=== PATIENT | female | born 1950 | race Caucasian/White ===

== ENCOUNTER 2016-08-28 14:57 | Inpatient (IN) | payer MEDICARE, OTHER ==
[~2016-08-28] VITALS: Ht 162.6 cm; Wt 58.3 kg
--- NOTE | 2016-08-28 15:00 | NUR ---
RECEIVED PATIENT FROM THE ED ACCOMPANIED BY ED HOSPITAL STAFF AND SPOUSE. ORIENTED TO SELF AND HOSPITAL . INTERMITTENT EPISODES OF TEARFULNESS. REPORTS OF CONFUSION WITH HALLUCINATIONS AND PARANOIA INCREASING OVER THE LAST 6 MONTHS. ADMITTED TO ROOM 1124 WITH ALTERED MENTAL STATUS. COOPERATIVE WITH ADMISSION PROCESS. SPOUSE AND PATIENT RELATED CODE STATUS IS FULL CODE.
[2016-08-28] MEDS ORDERED: VICKS VAPORUB O50 GM NASAL (17:37)
[2016-08-28] MEDS ORDERED: ZOLOFT100 MG PO (17:38)
[2016-08-28] MEDS ORDERED: GABAPENTIN100 MG PO ×2 (17:39→17:47)
[2016-08-28] MEDS ORDERED: PLAVIX75 MG PO (17:40)
[2016-08-28] MEDS ORDERED: LASIX40 MG PO ×2 (17:41→17:42)
[2016-08-28] MEDS ORDERED: PROTONIX40 MG PO (17:41)
[2016-08-28] MEDS ORDERED: MOBIC7.5 MG PO (17:43)
[2016-08-28] MEDS ORDERED: ATIVAN0.5 MG PO (17:44)
[2016-08-28] MEDS ORDERED: HYDROCODON-ACE1 EAC7 PO ×2 (17:46→17:52)
[2016-08-28] MEDS ORDERED: PRINIVIL10 MG PO (17:48)
[2016-08-28] MEDS ORDERED: BENADRYL25 MG PO (17:50)
[2016-08-28] MEDS ORDERED: ATIVAN1 MG PO (17:51)
[2016-08-28] MEDS ORDERED: TYLENOL PM1 TAB PO (17:53)
[2016-08-28] MEDS ORDERED: ZETIA10 MG PO (17:54)
[2016-08-28] MEDS ORDERED: LIPITOR20 MG PO (17:55)
[2016-08-28 20:59] VITALS: BP 103/58
[2016-08-28 22:03] VITALS: BP 103/58
--- NOTE | 2016-08-29 02:35 | NUR ---
PATIENT WAS IN ROOM, SITTING ON BED, ALERT AND ORIENTED TO PERSON, PLACE, TIME AND SITUATION. WHEN ASKED ABOUT HALLUCINATIONS, SHE SAID SOMETIMES SHE BELIEVES SOMEONE IS FOLLOWING HER. PATIENT ADMITS TO DEPRESSION AND FEELINGS OF HOPELESSNESS. HOWEVER, PATIENT IS VERY MOTIVATED TO TREATMENT AND WANTS TO GET BETTER. PATIENT SAYS SHE HAS BEEN DEPRESSED SINCE LOSING CUSTODY OF HER GRANDDAUGHTER. SHE IS CALM, PLEASANT AND COOPERATIVE.
[2016-08-29 06:57] LABS: CHOL - HDL RATIO 3.2 ratio (2.3-4.1); LDL-HDL RATIO 1.7 ratio (1.5-3.5)
[2016-08-29 07:03] LABS: HEMOGLOBIN A1C 5.5 % (4.8-6.0)
[2016-08-29 07:53] VITALS: BP 110/55
[2016-08-29 10:59] VITALS: Ht 162.6 cm; Wt 58.3 kg
--- NOTE | 2016-08-29 11:20 | NUR ---
B) PATIENT IS AWAKE AND ALERT, SHE DOES HAVE SOME CONFUSION, SHE HAS NOT DISPLAYED ANY PARANOIA. SHE DOES HAVE A SAD AFFECT UNTIL STAFF OR PEERS TALK TO HER, SHE IS USING A WALKER JUST TO HELP STEADY HER. I) PROVIDE PRESCRIBED MEDS. R) PATIENT IS COMPLIANT WITH MEDS AND UNT MILIEU. P) CONTINUE PLAN OF CARE.
[2016-08-29 19:30] VITALS: BP 110/83
--- NOTE | 2016-08-29 20:45 | NUR ---
B) RECEIVED IN DAYROOM SITTING IN CHAIR WATCHING TV VERY INTENSELY. NO SIGNS OF HALLUCINATIONS NOTED. CALM AND COOPERATIVE WITH CARE AND ASSESSMENT. I) ADMINISTER PRESCRIBED MEDICATIONS, REORIENT TO REALITY VS NON-REALITY. VSS. R) MEDICATION COMPLIANT. AMBULATES INDEPENDENTLY. P) CONTINUE CURRENT PLAN OF CARE AND MONITOR FOR SAFETY AND CHANGES.
[2016-08-30 09:32] VITALS: BP 114/53
--- NOTE | 2016-08-30 12:50 | NUR ---
B) PATIENT HAS BEEN TEARFUL TODAY, SHE SAYS "I CAN BE SAD THEN WATCH THESE MOVIES THEN GET HAPPY. PATIENT IS AWAKE AND ALERT AND ORIENTED X3. I) PROVIDE PRESCRIBED MEDS. R) PATIENT IS COMPLIANT WITH MEDS AND UNIT MILIEU. P) CONTINUE PLAN OF CARE.
[2016-08-30 19:30] VITALS: BP 122/66
--- NOTE | 2016-08-31 06:07 | NUR ---
RECEIVED IN DAYROOM SITTING IN RECLINER WATCHING TV WITH PEERS. CALM AND COOPERATIVE WITH CARE AND ASSESSMENT. AMBULATORY INDEPENDENTLY. TEARFUL AT TIMES. REDIRECT NEEDED. COMPLIANT WITH MEDICATIONS. CONTINUE WITH PLAN OF CARE AND MONITOR FOR SAFETY.
[2016-08-31 07:00] VITALS: BP 121/64
--- NOTE | 2016-08-31 15:02 | NUR ---
SITTING IN CHAIR IN DAYROOM, LABILE EMOTIONS, CRYING FREQUENTLY. EASILY BECOMES ANXIOUS WITH PEER DISRUPTIONS AND STARTS CRYING. PATIENT ORIENTED TO SELF, PLACE, TIME AND SITUATION. HAS FEELINGS OF HOPELESSNESS BUT WANTS TO GET BETTER. PATIENT WAS ENCOURAGED TO TALK TO NURSE. CONTINUE TO MONITOR, CONTINUE PLAN OF CARE.
[2016-08-31] MEDS ORDERED: PROTONIX40 MG PO (16:20)
[2016-08-31 19:30] VITALS: BP 115/89
--- NOTE | 2016-09-01 03:36 | NUR ---
B) Recieved sitting in the day room watching TV, calm and cooperative with assessment and care, sad and tearful at times, no hallucinations noted this shift, I) Administered perscribed medications, monitored for safety, R) Medication compliant, cooperative with staff, P) Continue plan of care.
--- NOTE | 2016-09-01 14:09 | PSY ---
PATIENT NAME:YOVANY PRESTON MEDICAL RECORD: [id number] : 48 LOCATION:[id number] ADMISSION DATE: 08/28/16 ACCOUNT: [id number] PSYCHIATRIC EVALUATION DATE OF EVALUATION: 08/29/16 Psychiatric Evaluation IDENTIFYING DATA: The patient is 66 years old and she is admitted to the hospital on a voluntary basis. CHIEF COMPLAINT: Depression. HISTORY OF PRESENT ILLNESS: The patient is admitted to the hospital from the Emergency Room. She presented there reporting depressive symptoms and feeling overwhelmed. Her indicated that she had been having active hallucinations and was feeling paranoid. The patient admits to this, but then tries to explain it away or dismiss it. Most of this relates to the fact that she had a granddaughter whose mother went to custodial. When the mother went to custodial, the child was 1 years old and came to live with her. At the age of 8, 7 years later, the child's mother gets out of custodial and the child goes to live with the mother. Yovany is very upset about this, feels like she has lost a child and apparently the granddaughter is also very upset and feels like she has lost a person, who for all practical purposes served as her mother. To compound the situation, Yovany has only had 1 biological child. She adopted others. The biological child she ____ in infancy. To make matters even more unpleasant, she adopted a child from [place] and that child in infancy. Yovany is endorsing numerous neurovegetative depressive symptoms. She says she does not want to kill herself, but she is having the psychotic symptoms. She denies substance abuse. PAST MEDICAL HISTORY: Significant for hypertension, hyperlipidemia, gastroesophageal reflux disease, diverticulitis and history of cervical cancer. She also has a history of Crohn disease and fibromyalgia and chronic lower back pain. PAST PSYCHIATRIC HISTORY: Significant for outpatient treatment for depression and anxiety, but this is her first hospitalization and apparently, the first time she has lost touch with reality. FAMILY HISTORY: Significant for anxiety and depression. ALLERGIES: CEPHALOSPORINS AND PENICILLIN. CURRENT MEDICATIONS: Include Zoloft, Neurontin, Plavix, Protonix, Lasix, Mobic, Ativan, hydrocodone, Neurontin, ____, Ativan, acetaminophen, and Lipitor. SOCIAL HISTORY: The patient is to her second . She has been to this man for 28 years. They have 4 children, all of whom are adopted. She has a number of grandchildren. It was the incident with an adopted daughter going to custodial and the granddaughter that she raised for ____ years that led to all of this conflict and depression. MENTAL STATUS EXAMINATION: The patient is awake, alert and oriented to person, place, somewhat to time and somewhat to situation. Her mood is depressed. Her affect is constricted. Thought processes are circumstantial. Memory, concentration and abstraction abilities are at least mildly impaired. She denies that she would seek to harm herself or others as well as overt psychotic symptoms. ASSETS: Supportive family members. LIABILITIES: Limited insight. DIAGNOSTIC IMPRESSION: AXIS I: Major depression, severe with psychotic features. AXIS II: None. AXIS III: Hypertension, hyperlipidemia, and chronic lower back pain. AXIS IV: Severe stressors. AXIS V: Global assessment of functioning is 35. PLAN: At this time, the patient is admitted to the hospital secondary to depressive symptoms with psychotic features. She will be comprehensively evaluated and treated with both mood stabilizing antidepressant and antipsychotic medications. Her long-term prognosis is guarded. TRANSINT:[id number] Voice Confirmation ID: [id number] DOCUMENT ID: [id number] RAOUL WILKS MD at 1409 CC: [id number] DICTATION DATE: 08/29/16 1349 POULTRY BUYER: 08/29/16 1504 ADM IN [facility] [address] [place] [address]
--- NOTE | 2016-09-01 14:42 | NUR ---
B.) Received this am, alert and oreinted times 4. Easily anxious but can not explain why. " I'm just anxious.". I.) Administer medications and monitor compliance. Encourage patient to express needs, provide one on one time to verbalize feelings and teach on coping skills. Monitor for any hallucination. R.) Compliant with medications. Emotionally labile, cries frequently, hopeless and becomes easily becomes anxious. States she does want to get better but just scared. No suicidal ideations. Talks with staff and expresses feelings, had one on one with skilled nursing case manager. Participated in group. No hallucinations noted or reported. P.) Continue plan of care.
[2016-09-01 19:30] VITALS: BP 90/45
--- NOTE | 2016-09-01 20:07 | NUR ---
RECEIVED IN DAYROOM. SITTING IN WHEELCHAIR WITH EYES OPEN. CALM AND COOPERATIVE WITH CARE AND ASSESSMENT. NO SIGNS OF HALLUCINATIONS. ENCOURAGE TO EXPRESS NEEDS. CONTINUES TO SIT QUIETLY IN CHAIR. CONTINUE PLAN OF CARE
--- NOTE | 2016-09-01 21:00 | NUR ---
PATIENT BECAME TEARFUL IN DAYROOM. WANTING TO CALL HER . TRANSFERED PATIENTS TO BEDROOM AREA. PATIENT CAME TO NURSES STATION AND STATED SHE WANTED TO TALK TO HER AND WAS TOLD THAT WE DO NOT ALLOW PATIENT TO MAKE CALLS AT THIS TIME OF NIGHT. PATIENT THEN STATED THAT SHE WANTED TO TALK TO THE DIRECTOR OF THE HOSPITAL. AGAIN WAS INSTRUCTED THAT WE DO NOT MAKE PHONE CALLS. PATEINT REFUSES TO DISCUSS WHAT ISSUES SHE IS HAVING WITH STAFF. VERY AGRUEMENTATIVE WITH STAFF.
--- NOTE | 2016-09-01 22:30 | NUR ---
NEW ORDER RECEIVED FOR ANXIETY. ATIVAN 0.5 MG PO OR IM EVRY 2 HRS NEEDED. HALDOL 2 MG PO OR IM EVERY 2 HRS NEEDED.
--- NOTE | 2016-09-01 23:10 | NUR ---
ATIVAN 0.5 MG PO AND HALDOL 2MG PO GIVEN FOR SEVERE ANXIETY. PATIENT SITTING AT BED SIDE AT THIS TIME IN CHAIR.
--- NOTE | 2016-09-02 00:06 | NUR ---
ASSISTED PATIENT FROM BEDSIDE CHAIR TO BED. BOX ALARM ON. NO SIGNS OF ANXIETY AT THIS TIME.
--- NOTE | 2016-09-02 12:00 | NUR ---
Nutrition Follow Up: Chart reviewed. Pt is eating 84% meal avg on a regular diet. Wt stable. +BM 08/29/16. Labs reviewed. Meds noted including Lasix. Pt with good po intake at this time. Rec continue current diet. RD will continue to monitor pt progress.
--- NOTE | 2016-09-02 14:16 | PN ---
PATIENT:YOVANY PRESTON MEDICAL RECORD: [id number] LOCATION:[facility] ADMISSION DATE: 08/28/16 PROGRESS NOTE DATE OF SERVICE: 09/01/2016 SUBJECTIVE: The patient's case was discussed with staff. She has no new complaint. OBJECTIVE: The patient has a depressed mood. She is very tearful. Again, she is talking about her granddaughter. She has clear evidence of cognitive impairment. For example, she cannot remember her wedding anniversary. She is going to be tested by Dr. Trudy Trujillo. I am not sure if the memory impairment is normal for someone so depressed or if there are 2 processes going on. I am going to increase the antidepressant dose. Her long-term prognosis is guarded. TRANSINT:[id number] Voice Confirmation ID: [id number] DOCUMENT ID: [id number] RAOUL WILKS MD at 1416 CC: [id number] DICTATION DATE: 09/01/16 1424 MAILROOM MANAGER: 09/01/16 2347 ADM IN [facility] [address] [place] [address]
--- NOTE | 2016-09-02 18:26 | NUR ---
PATIENT HAS BEEN LABILE IN EMOTIONS. SHE HAS BEEN CRYING AT VARIOUS TIMES. PATIENT SAID SHE WAS AFRAID SHE "WOULD BE HERE FOREVER". PATIENT WAS ENCOURAGED TO TALK WITH NURSE. CONTINUE TO MONITOR
--- NOTE | 2016-09-02 18:28 | NUR ---
PATIENT WAS IN DINING ROOM VISITING WITH FAMILY. SHE IS RELAXED, CALM AND COOPERATIVE. COMPLIANT WITH MEDICATIONS. CONTINUE TO MONITOR. CONTINUE PLAN OF CARE
--- NOTE | 2016-09-02 20:10 | NUR ---
RECEIVED IN DAYROOM. STTING IN CHAIR WATCHING TV. CALM AND COOPERATIVE WITH CARE AND ASSESSMENTS. NO SIGNS OF HALLUCINATIONS OR PARANOIA. ENCOURAGE TO EXPRESS NEEDS AND FEELINGS. CONTINUES TO SIT QUIETLY IN CHAIR. CONTINUE PLAN OF CARE
[2016-09-03 08:00] VITALS: BP 119/57
--- NOTE | 2016-09-03 12:00 | PN ---
PATIENT:YOVANY PRESTON MEDICAL RECORD: [id number] LOCATION:[facility] ADMISSION DATE: 08/28/16 PROGRESS NOTE DATE OF SERVICE: 09/02/2016 SUBJECTIVE: The patient's case was discussed with staff. She has no new complaint. OBJECTIVE: The patient is in good behavioral control. Her anxiety seems significantly better. She was tested by Dr. Trudy Trujillo and scored 25 out of 30 on the MOCA. The patient is not having any suicidal thoughts. ASSESSMENT: No change in diagnoses. PLAN: I anticipate the patient could be transitioned out of the hospital soon if this level of improvement is maintained. Her long-term prognosis is guarded. TRANSINT:[id number] Voice Confirmation ID: [id number] DOCUMENT ID: [id number] RAOUL WILKS MD at 1200 CC: [id number] DICTATION DATE: 09/02/16 1420 ORACLE ERP DEVELOPER: 09/02/16 9483 ADM IN [place] [id number] [place] [address]
[2016-09-03] MEDS ORDERED: KLONOPIN1 MG PO (12:06)
[2016-09-03] MEDS ORDERED: CYMBALTA20 MG PO (12:06)
[2016-09-03] MEDS ORDERED: ULTRAM50 MG PO (12:06)
[2016-09-03] MEDS ORDERED: PROTONIX40 MG PO (12:08)
[2016-09-03] MEDS ORDERED: CARAFATE1 G/10 ML PO (12:08)
--- NOTE | 2016-09-03 14:16 | NUR ---
Received this am alert and oriented times four, calm and cooperative with care. No hallucinations reported or noted. Socializing with staff and smiling, coping well by conversing with others, expressing her feeling and doing activities. Verbalized feeling hopeful and is smiling more. Compliant with medications. Safety maintained. Continue with plan of care and monitoring.
[2016-09-03 21:16] VITALS: BP 92/37
--- NOTE | 2016-09-04 00:59 | NUR ---
B) Recieved patient in the day room, alert and oriented X 4, calm and cooperative with assessment, helpful with other patients, I) Administered perscribed medications, monitored for safety, R) Medication compliant, ready to go home tomorrow, P) Continue plan of care.
--- NOTE | 2016-09-04 10:10 | NUR ---
B) PATIENT IS UP AND AWAKE SHE SAYS SHE DID NOT SLEEP WELL, SHE IS HAPPY TO BE GOING HOME. SHE IS QUIET, SHE PACKED HER BELONGINGS HERSELF. PATIENT HAS SOME DEPRESSION, BUT HER MOOD IS BETTER, SHE IS TAKING HER MEDS PRESCRIBED. PATIENT AMBULATES INDEPENDENTLY. I) PROVIDE PRESCRIBED MEDS, ENCOURAGE USE OF COPING SKILLS. R) PATIENT IS PLEASANT AND INTERACTS AND TRIES TO HELP STAFF WITH OTHER PATIENTS. P) CONTINUE D/C PLAN.
--- NOTE | 2016-09-04 11:19 | NUR ---
MEDS CALLED TO [facility]. ALL PAPER WORK FAXED TO DR. NICHOLS, PATIENT IS AWARE SHE NEEDS TO CALL HER DRHolleyS AND GET APPTS. PATIENT GIVEN APPT TIME FOR [facility] APPT. PATIENTS BELONGINGS ACCOUNTED FOR AND PACKED READY TO D/C WITH HER.
--- NOTE | 2016-09-04 11:30 | NUR ---
WHILE GETTING PATIENT READY TO D/C EXPLAINING D/C INFORMATION, SHE BECAME TEARFUL. ASKED HER WHAT SHE WAS TEARFUL ABOUT AND SHE SAID SHE NEEDED SOME UNDERGARMENTS. EXPLAINED TO HER THAT WE CAN GIVE HER SOME THAT IS NOT A PROBLEM, AND THAT SHE CAN START TALKING TO VERBALIZE HER FEELINGS INSTEAD OF CRYING. SHE SAID "OK" PATIENT AND SPOUSE D/C'D FROM THE UNIT NOW.
--- NOTE | 2016-09-04 15:04 | PN ---
PATIENT:YOVANY PRESTON MEDICAL RECORD: [id number] LOCATION:[facility] ADMISSION DATE: 08/28/16 PROGRESS NOTE DATE OF SERVICE: 09/03/2016 SUBJECTIVE: The patient's case was discussed with staff. She has no new complaint. OBJECTIVE: The patient's mood has improved. She denies that she would seek to harm herself or others. She is tolerating her medicines well. She is eating adequately and sleeping adequately. ASSESSMENT: No change in diagnoses. PLAN: I think the patient is just about ready for discharge. I had mentioned to her that perhaps we would discharge her tomorrow with this level of improvement was maintained and she requested that she be discharged today. I think that is a little premature, but not so much, so that I would not allow or discharge her against medical advice. I am going to go ahead and let her leave today. Her long-term prognosis is guarded. TRANSINT:[id number] Voice Confirmation ID: [id number] DOCUMENT ID: [id number] RAOUL WILKS MD at 1504 CC: [id number] DICTATION DATE: 09/03/16 1205 ENGINEERING SURVEYOR: 09/03/16 1348 DIS IN 09/04/16 [place] [address] [place] [address]
--- NOTE | 2016-09-06 14:54 | PN ---
PATIENT:YOVANY PRESTON MEDICAL RECORD: [id number] LOCATION:[facility] ADMISSION DATE: 08/28/16 PROGRESS NOTE DATE OF SERVICE: 09/04/2016 SUBJECTIVE: The patient's case was discussed with staff. She has no new complaint. OBJECTIVE: The patient is depressed, but not severely so. She certainly is not suicidal. She is looking forward to going home and is willing to go to the outpatient program at [facility]. ASSESSMENT: No change in diagnoses. PLAN: Current medicines have been reviewed and will be maintained. Long-term prognosis is guarded. TRANSINT:[id number] Voice Confirmation ID: [id number] DOCUMENT ID: [id number] RAOUL WILKS MD at 1454 CC: [id number] DICTATION DATE: 09/04/16 1515 ORGAN PIPE MAKER METAL: 09/04/162032 DIS IN 09/04/16 [facility] [address] [place] [address]
== END 2016-09-04 11:35 | disposition home or self-care (01) | DRG 885 ==
LOC: D.PSYCH 14:57
PROVIDERS: ADMIT Psychiatry & Neurology Psychiatry
DX: F32.3 Major depressive disorder, single episode, severe with psychotic features (principal); K50.90 Crohn's disease, unspecified, without complications; I10 Essential (primary) hypertension; E78.5 Hyperlipidemia, unspecified; G89.29 Other chronic pain; F41.9 Anxiety disorder, unspecified; K21.9 Gastro-esophageal reflux disease without esophagitis; K57.90 Diverticulosis of intestine, part unspecified, without perforation or abscess without bleeding; Z85.41 Personal history of malignant neoplasm of cervix uteri; M79.7 Fibromyalgia; Z72.0 Tobacco use

== ENCOUNTER 2016-10-22 22:43 | Inpatient (IN) | payer MEDICARE, OTHER ==
[~2016-10-22] VITALS: Ht 162.6 cm; Wt 68.8 kg
[~2016-10-22 22:43] MED LIST: ATIVAN0.5 MG PO; ATIVAN1 MG PO; BENADRYL25 MG PO; CARAFATE1 G/10 ML PO; CYMBALTA20 MG PO; GABAPENTIN100 MG PO; HYDROCODON-ACE1 EAC7 PO; KLONOPIN1 MG PO; LASIX40 MG PO; LIPITOR20 MG PO; MOBIC7.5 MG PO; PLAVIX75 MG PO; PRINIVIL10 MG PO; PROTONIX40 MG PO; TYLENOL PM1 TAB PO; ULTRAM50 MG PO; VICKS VAPORUB O50 GM NASAL; ZETIA10 MG PO; ZOLOFT100 MG PO
[2016-10-23] VITALS (60 sets, daily range): BP systolic 54–122; BP diastolic 36–93; Ht 162.6 cm; Wt 68.8 kg
[2016-10-23 00:56] LABS: HEMATOCRIT 42.2 % (36.0-48.0); HEMOGLOBIN 14.3 g/dL (12-16); MCHC 33.9 g/dL (31.0-37.0); MCV 91.5 fL (80.0-100.0); MEAN PLATELET VOLUME 10.1 fL (7.4-10.4); PLATELET COUNT 296 10x3/uL (130-400); RBC 4.61 10x6/uL (4.00-5.40); RDW 12.9 % (11.5-14.5); WBC 24.6 10x3/uL (4.8-10.8)
[2016-10-23 00:58] LABS: ALBUMIN 3.7 g/dL (3.4-5.0); BILIRUBIN - TOTAL 0.69 mg/dL (0.2-1.3); CALCIUM 9.1 mg/dL (8.5-10.1); CARBON DIOXIDE 16.8 mmol/L (21.0-32.0); CREATININE - SERUM 2.7 mg/dL (0.6-1.3); MAGNESIUM - SERUM 2.4 mg/dL (1.8-2.4); PROTEIN - SERUM 6.8 g/dL (6.4-8.2)
[2016-10-23 00:59] LABS: POTASSIUM - SERUM 4.8 mmol/L (3.5-5.1)
[2016-10-23 01:58] LABS: BASOPHILS 1 % (0-2); EOSINOPHILS 1 % (0-7); LYMPHOCYTES 5 % (15-50); MONOCYTES 1 % (2-11); NEUTROPHILS 81 % (40-80); PLATELET ESTIMATE NORMAL
[2016-10-23 02:39] LABS: APPEARANCE HAZY (CLEAR); BILIRUBIN NEGATIVE (NEGATIVE); COLOR YELLOW (YELLOW); GLUCOSE NEGATIVE (NEGATIVE); KETONE NEGATIVE (NEGATIVE); LEUKOCYTE ESTERASE NEGATIVE (NEGATIVE); NITRITE NEGATIVE (NEGATIVE); PH 5.5 (5.0-6.0); PROTEIN NEGATIVE (NEGATIVE); UROBILINOGEN NORMAL (NORMAL)
--- NOTE | 2016-10-23 03:05 | NUR ---
PT ARRIVED TO ICU. C/O ABD PAIN. BUTTOCKS REDDENED. RECTAL TUBE PLACED. BEAR HUGGER IN PLACE. TEMP ON ARRIVAL 96.2. RIGHT SUBCLAVIAN CVL; BLOODY DRAINAGE FROM SITE; PRESSURE BAG APPLIED. RIGHT AC PIV D/C'D DUE TO INFILTRATION.
[2016-10-23 03:58] LABS: BASOPHILS 0.1 % (0-2); EOSINOPHILS 0 % (0-7); HEMATOCRIT 39.7 % (36.0-48.0); HEMOGLOBIN 13.2 g/dL (12-16); IMMATURE GRANULOCYTES 0.4 % (0-5); LYMPHOCYTES 2.9 % (15-50); MCH 30.7 pg (26.0-34.0); MCHC 33.2 g/dL (31.0-37.0); MCV 92.3 fL (80.0-100.0); MEAN PLATELET VOLUME 9.9 fL (7.4-10.4); MONOCYTES 5.5 % (2-11); NEUTROPHILS 91.1 % (40-80); PLATELET COUNT 283 10x3/uL (130-400); RDW 12.6 % (11.5-14.5); WBC 30.5 10x3/uL (4.8-10.8)
[2016-10-23 11:30] LABS: APPEARANCE CLEAR (CLEAR); BACTERIA FEW /hpf (NONE SEEN); BILIRUBIN NEGATIVE (NEGATIVE); COLOR YELLOW (YELLOW); EPITHELIAL CELLS 0-5 /hpf (0-5); GLUCOSE NEGATIVE (NEGATIVE); KETONE NEGATIVE (NEGATIVE); LEUKOCYTE ESTERASE TRACE (NEGATIVE); MUCUS <1+ /lpf (NONE SEEN); NITRITE NEGATIVE (NEGATIVE); PROTEIN TRACE mg/dL (NEGATIVE); RED CELLS - URINE 0-5 /hpf (0-5); WHITE CELLS - URINE OCC /hpf (0-5)
[2016-10-23 11:31] LABS: HYALINE CAST 0-5 /lpf (NONE SEEN)
--- NOTE | 2016-10-23 14:46 | NUR ---
0800 REPORT RECIEVED AND CARE ASSSUMED OF PT... PT IS SUPINE IN ICU BED WITH MALI HUGGER ON FOR TWEEMP TEMP IS TAKEN ORALLY AT THIS TIME AND IS 97.6 BBAHR HUGGAR IS TURNED OFF AT TTHIS TIME.. THE PT HAS A RECTAL TUBE WITH DRAINAGE BAG LIQUID STOOL IN THE BAG.. THERE IS SEEPAGE AROUND TUBE AND THE LINENS ARRE SOILED... PT CLEANED AT THIS TIME AND RECTAL BAG IS REMOVED THERE IS FORMED STOOL ON THE LINENS.. ST ON HEART MONITOR AND THERE IS A LEFT CVL IN THE SUBCLAVIAN.. THIS IS OOZING BLOOD FROM UNDER DRESSING THERE IS A SAND BAG AROUND THE AREA.. XDDOPAMINE IS INFUSING INTO CVL.. C/O ABDOMINAL PAIN 0900 WITHOUT VISITORS... DRESSING ON SUBCLAVIAN AREA CHANGES AND FIBULAR PLACED OVER SITE 4X4 WITH TEGADERM DRESSING CDI.. INCONTINENT OF LIQUID STOOL CONTINUES WIHT XC/O PAIN IN ABDOMEN 1000 IN TO SEE PT AND UPDATE IS GIVEN.. 1200 INCONTINENT OF STOOL LINEN CHANGED... 1400 DR CROSS IN TO SEE PT... 1415 DR FUENTES IN TO SEE PT.. SPOKE WITH DR CROSS... NS FLUID BBOLUS 1 LITER OVER NEXT HOUR TO BE INFUSED PER VO DR FUENTES.. 1445 INCONTINENT OF STOOL CLEANED AND ICE CHIPS GIVEN..
--- NOTE | 2016-10-23 15:55 | NUR ---
1500 VISITOR AT THE BEDSIDE.. PT INCONTINENT LIQUID STOOL 1545 PT CLEANED AND RECTAL ABG PLACED PTS BUTTOCKS ARE REDDENED FROM THE CONSTANT LIQUID STOOL ON HER SKIN.. BUTT BALM APPLIED.. CONTINUES TO SLOWLY OOZE FROM CVL BRIGHT RED BLOOD.. NOT IN A COPIOUS AMOUNT ..
--- NOTE | 2016-10-23 18:13 | NUR ---
1648 I AND O DONE 174 DR BURDICK IN TO SEE PT 1800 AT [facility] UPDATE IS GIVEN..
--- NOTE | 2016-10-23 19:15 | NUR ---
ASSESSMENT COMPLETE. S1S2. SINUS TACHYCARDIA SHOWING ON MONITOR. RR EQUAL NON LABORED. RIGHT SUBCLAVIAN CVL; PATENT; SITE BLEEDING; PRESSURE BAG APPLIED. PT C/O OF ABD PAIN; INCREASED PAIN WITH PALPATION. ABD PAIN INCREASED ON LLQ AND LUQ. PERRLA. AAO.
--- NOTE | 2016-10-23 21:30 | NUR ---
NO VISITORS DURING VISITATION.
--- NOTE | 2016-10-23 23:10 | NUR ---
REASSESSMENT COMPLETE. NO CHANGES FROM PREVIOUS ASSESSEMENT. RT SUBCLAVIAN CVL WITH INTERMITTEN PERIODS OF BLEEDING; USING PRESSURE BAG INTERMITTENLY.
[2016-10-24] VITALS (69 sets, daily range): BP systolic 79–117; BP diastolic 34–89
--- NOTE | 2016-10-24 00:45 | NUR ---
PT RECTAL TUBE LEAKED. COMPLETE BED BATH. COMPLETE LINEN CHANGE. ADJUSTED RECTAL TUBE IN ATTEMPT TO PREVENT LEAKING.
--- NOTE | 2016-10-24 01:00 | NUR ---
PT C/O SEVERE ABD PAIN.
--- NOTE | 2016-10-24 01:20 | NUR ---
SPOKE WITH DR. BUSTILLO ABOUT CURRENT PT CONDITION. ORDERS RECIEVED.
--- NOTE | 2016-10-24 03:00 | NUR ---
REASSESSMENT COMPLETE. NO CHANGES FROM PREVIOUS ASSESSEMENT. NOTED PAIN DECREASE. VSS. REMAINS ON DOPAMINE AT 10MCG/KG/MIN
[2016-10-24 04:00] LABS: BASOPHILS 0.1 % (0-2); EOSINOPHILS 0 % (0-7); HEMATOCRIT 35.6 % (36.0-48.0); HEMOGLOBIN 11.9 g/dL (12-16); IMMATURE GRANULOCYTES 0.3 % (0-5); LYMPHOCYTES 4.9 % (15-50); MCH 30.2 pg (26.0-34.0); MCHC 33.4 g/dL (31.0-37.0); MCV 90.4 fL (80.0-100.0); MEAN PLATELET VOLUME 10.5 fL (7.4-10.4); NEUTROPHILS 83.7 % (40-80); PLATELET COUNT 232 10x3/uL (130-400); RBC 3.94 10x6/uL (4.00-5.40); RDW 12.6 % (11.5-14.5)
[2016-10-24 04:01] LABS: WBC 13.1 10x3/uL (4.8-10.8)
[2016-10-24 04:13] LABS: INR 1.6 (0.85-1.17); PROTIME 18.9 SECONDS (11.6-15.0)
[2016-10-24 05:02] LABS: ALBUMIN 2.4 g/dL (3.4-5.0); ANION GAP 14.4 mmol/L (8-16); BILIRUBIN - TOTAL 0.3 mg/dL (0.2-1.3); CALCIUM 7.6 mg/dL (8.5-10.1); CARBON DIOXIDE 24.4 mmol/L (21.0-32.0); CREATININE - SERUM 2.7 mg/dL (0.6-1.3); POTASSIUM - SERUM 3.8 mmol/L (3.5-5.1); PROTEIN - SERUM 5.3 g/dL (6.4-8.2)
--- NOTE | 2016-10-24 09:25 | NUR ---
DR. CROSS AT BEDSIDE SPEAKING AT LENGTH WITH PT AND . DISCUSSING ALL DIAGNOSIS AND TEST RESULTS. DR. CROSS REPEATING ALL ANSWERS MULTIPLE TIMES.
--- NOTE | 2016-10-24 09:42 | NUR ---
Nutrition follow-up: Pt remains NPO Labs reviewed Possible ischemic bowel Will need to begin nutrition support soon. RDN following.
--- NOTE | 2016-10-24 09:59 | NUR ---
* Is the patient Alert and Oriented? Yes 0 * How many steps to enter\exit or inside your home? 2 0 * PCP Dr. Taylor 0 * Pharmacy [facility] 0 * Preadmission Environment Home with Family 0 * ADLs Independent 0 * Equipment Cane Nebulizer 0 * List name and contact numbers for known caregivers / representatives who currently or will assist patient after discharge: Spouse - Raf [phone] 0 * Can the patient safely return to the preadmission environment? Yes 0 * Has this patient been hospitalized within the prior 30 days at any hospital? No 10/24/2016 9:55 DCP: Discharge Planning Patient Name: YOVANY PRESTON Admission Status: ER Accout number: [id number] Admission Date: 10-23-2016 : 1950 Admission Diagnosis: Attending: NAILA Current LOS: 1 Planned Disposition: Home Primary Insurance: MEDICARE A & B Discharge Planning Comments: CM met with spouse to assess dc plans/needs. Patient lives with spouse & is independent with ADL's but has been using a cane at times. He states she has a nebulizer which she only uses PRN. She has not had home health services in the past. He reports she goes to [facility] for outpatient group therapy twice a week for treatment of her severe depression. DC needs are unknown at this time. CM will follow. Full Time: Briana Velez
--- NOTE | 2016-10-24 10:44 | NUR ---
ATTEMPTING TO OBTAIN URINE FOR TESTING. COMBS REMAINS CLAMPED SINCE 0700 WITH NO URINE.
--- NOTE | 2016-10-24 11:47 | CN ---
PATIENT NAME:YOVANY PRESTON MEDICAL RECORD: [id number] : 48 LOCATION:[id number] ADMIT DATE: 10/23/16 ACCOUNT: [id number] CONSULTING PHYSICIAN: MEME BURDICK MD REFERRING PHYSICIAN: CEASAR CARPIO DO DATE OF CONSULTATION: 10/23/2016 GASTROENTEROLOGY CONSULTATION DATE OF CONSULTATION: 10/23/2016. REFERRING PHYSICIAN: Dereck Peterson DO. HISTORY OF PRESENT ILLNESS: The patient is a 66-year-old white female known to me with a history of chronic diarrhea and diagnosed with collagenous colitis on colonoscopy in March 2015, basically was admitted with progressive diarrhea over the past couple of weeks as well as acute onset of diffuse abdominal pain, more left-sided than right-sided. On admission, she had leukocytosis with a white cell count of about 24,000, and hypotension and severe diarrhea without any bleeding. I was asked to see the patient in this regard. Again, a long time I have seen this lady was before colonoscopy in March 2015, which revealed collagenous colitis, but otherwise normal other than a small ileocecal ulcer which was felt to be due to Mobic that she has been taking. She was told to discontinue that and use Entocort for collagenous colitis. I am not sure if she ever did that since I lost her in follow up. She had an IBD serology was positive for ulcerative colitis so I think this is positive more for collagenous colitis and true inflammatory bowel disease. PAST MEDICAL HISTORY: As above. She also has fibromyalgia, anxiety, chronic tobacco abuse and depression. PAST SURGICAL HISTORY: Cholecystectomy, , shoulder surgery. ALLERGIES: CEPHALOSPORINS AND PENICILLIN. HOME MEDICATIONS: Include Klonopin, Cymbalta, Protonix, Ultram and Carafate as well as Mobic, Neurontin, Lipitor, Prinivil and Zetia. FAMILY HISTORY: Negative for GI disease. SOCIAL HISTORY: The patient is a longtime smoker. She denies alcohol use. REVIEW OF SYSTEMS: Noncontributory other than HPI. PHYSICAL EXAMINATION: GENERAL: Reveals an elderly white female in mild distress. She is currently on dopamine. VITAL SIGNS: Blood pressure is 100/70. She is not tachycardic. HEENT: Unremarkable. NECK: Supple. CHEST: Clear anteriorly. HEART: Regular rate and rhythm. ABDOMEN: Soft with mild tenderness throughout the left side of her abdomen. EXTREMITIES: No edema. CONSULT REPORT [id number] YOVANY PRESTON LABORATORY DATA: Reveals a white count of 30,000, hematocrit 39, MCV of 92, platelet count 283,000 with a left shift. Electrolytes are normal. BUN 44, creatinine 2.7, AST 95, ALT 39, alkaline phosphatase 154. Albumin 3.7, lactic acid 1.3. Urine and blood cultures have been drawn. Stool for C. diff is negative. Stool culture is pending. She is heme positive. IMPRESSION: 1. Acute onset of left side abdominal pain associated with severe diarrhea, hypertension, renal insufficiency and leukocytosis of unclear etiology, worrisome for ischemic bowel and/or sepsis. 2. Chronic diarrhea due to biopsy proven collagenous colitis as noted above. 3. Chronic tobacco abuse. 4. History of chronic NSAID use with Mobic. 5. CT of the abdomen and pelvis was completely negative. RECOMMENDATION: 1. Agree with stool studies, blood cultures, empiric antibiotics. She has been started on Merrem on admission yesterday. 2. Obviously avoid all NSAIDs. 3. Agree with need for CTA or abdominal angiogram once more stable. 4. We will go ahead and give steroids for now since it would help collagenous colitis and there is nothing growing in her blood or stool cultures thus far. TRANSINT:[id number] Voice Confirmation ID: [id number] DOCUMENT ID: [id number] MEME BRUDICK MD at 1147 CC: DERECK PETERSON DO [id number] DICTATION DATE: 10/23/161806 SENIOR QA AUTOMATION ENGINEER: 10/24/16 0207 ADM IN [place] [id number] [place] [address]
--- NOTE | 2016-10-24 14:24 | NUR ---
DR. FUENTES NOTIFIED OF OLIGURIA.
--- NOTE | 2016-10-24 15:01 | NUR ---
LITER BOLUS INFUSING OVER 1 HOUR.
--- NOTE | 2016-10-24 19:00 | NUR ---
REPORT RECIEVED, INITIAL ASSESSMENT COMPLETE, PLEASE SEE FLOW SHEETS FOR DETAILS. ORAL CARE AND TURNING PROVIDED. A&O X4, BRUISING AND RED SPOTS NOTED GENERALIZED ALL OVER BODY. C/O PAIN IN ABDOMEN, 12/25 WILL VIEW EMAR FOR PAIN MEDS. PPP, SOME SWELLING NOTED IN LOWER EXTREMETIES. BED LOW AND LOCKED, VSS ATT, WILL CONTINUE POC.
--- NOTE | 2016-10-24 20:55 | NUR ---
PT RESTING, ASKED FOR BACK TO BE WASHED OFF, THIS WAS PROVIDED, SHE WASHED HER OWN FACE, ORAL CARE KIT PROVIDED, SELF CARE RESUMED. DENIES ANY OTHER NEEDS ATT. BED LOW AND LOCKED, CALL LIGHT IN REACH. WILL CONTINUE POC.
--- NOTE | 2016-10-24 23:00 | NUR ---
REASSESSMENT COMPLETE, PLEASE SEE FLOW SHEETS FOR DETAILS. PT TURNS HERSELF AND GIVES HERSELF ORAL CARE WITH UTENSILS PROVIDED AT BEDSIDE IN REACH. DENIES PAIN/NEEDS ATT, BED LOW AND LOCKED, VSS, TITRATING DOPAMINE PER ORDERS, CPOC.
[2016-10-25] VITALS (90 sets, daily range): BP systolic 75–158; BP diastolic 37–134
--- NOTE | 2016-10-25 00:59 | NUR ---
RESTING, VSS, BED LOW AND LOCKED, CALL LIGHT IN REACH. NO S&S OF ACUTE DISTRESS NOTED. WILL CPOP.
--- NOTE | 2016-10-25 03:00 | NUR ---
REASSESSMENT COMPLETE, PLEASE SEE FLOW SHEETS FOR DETAILS. TURNS SELF. BED LOW AND LOCKED. ORAL CARE KIT AT BEDSIDE. CALL LIGHT IN REACH. VSS, WILL CONTINUE POC.
[2016-10-25 03:45] LABS: BASOPHILS 0 % (0-2); EOSINOPHILS 0 % (0-7); HEMATOCRIT 29.6 % (36.0-48.0); HEMOGLOBIN 10.2 g/dL (12-16); IMMATURE GRANULOCYTES 2.1 % (0-5); LYMPHOCYTES 3.4 % (15-50); MCH 30.4 pg (26.0-34.0); MCHC 34.5 g/dL (31.0-37.0); MEAN PLATELET VOLUME 10.7 fL (7.4-10.4); MONOCYTES 6.2 % (2-11); NEUTROPHILS 88.3 % (40-80); RBC 3.36 10x6/uL (4.00-5.40); RDW 12.4 % (11.5-14.5)
[2016-10-25 03:52] LABS: MCV 88.1 fL (80.0-100.0); PLATELET COUNT 178 10x3/uL (130-400)
[2016-10-25 03:55] LABS: ALBUMIN 2.2 g/dL (3.4-5.0); ANION GAP 11.1 mmol/L (8-16); BILIRUBIN - TOTAL 0.41 mg/dL (0.2-1.3); CALCIUM 7.8 mg/dL (8.5-10.1); CARBON DIOXIDE 30.1 mmol/L (21.0-32.0); PROTEIN - SERUM 5.3 g/dL (6.4-8.2)
[2016-10-25 03:57] LABS: CREATININE - SERUM 1.7 mg/dL (0.6-1.3); POTASSIUM - SERUM 3.2 mmol/L (3.5-5.1)
--- NOTE | 2016-10-25 05:04 | NUR ---
PT RESTLESS, CO PAIN 10/10 IN ABDOMEN, GAVE PAIN MEDS PER ORDERS. DENIES ANY OTHER NEEDS ATT. NO S&S OF ACUTE DISTRESS NOTED. BED LOW AND LOCKED, VSS, WILL CPOC.
--- NOTE | 2016-10-25 07:00 | NUR ---
REC'D CARE OF PT. A&O X3.
--- NOTE | 2016-10-25 08:51 | NUR ---
I CALLED HER PER HER REQUEST AT WORK. SHE WANTED TO KNOW WHEN HE WAS COMING TO SEE HER. HE SAID HE WOULD BE HERE AT 1500 THIS EVENING.
--- NOTE | 2016-10-25 08:52 | NUR ---
CL LIQUIDS SERVED.
--- NOTE | 2016-10-25 10:45 | NUR ---
BLOOD DRAWN FOR VANC LEVEL AND TOOK TO LAB.
--- NOTE | 2016-10-25 14:37 | NUR ---
WEAN OFF DOPAIMINE SLOWLY 0.5-1 MCG PER HOUR UNTIL OFF.
--- NOTE | 2016-10-25 15:28 | NUR ---
FAMILY AT BEDSIDE. UPDATED.
--- NOTE | 2016-10-25 15:30 | NUR ---
FAMILY AT BEDSIDE. UPDATED BY DR. FUENTES.
--- NOTE | 2016-10-25 17:08 | NUR ---
SITTING UP IN BED. HAS CL LIQUID TRAY AT BEDSIDE. DENIES NEEDS.
--- NOTE | 2016-10-25 17:59 | NUR ---
AT BEDSIDE.UPDATED BY PT.
--- NOTE | 2016-10-25 19:00 | NUR ---
REPORT RECIEVED, INITIAL ASSESSMENT COMPLETE, PLEASE SEE FLOW SHEETS FOR DETAILS. SITTING UP IN BED, DENIES PAIN/NEEDS ATT. LUNGS CLEAR BUT DIMINISHED IN LOWER LOBES. RECTAL TUBE IN PLACE AND DRAINING, BOWEL SOUNDS ACTIVE X4. FOELY IN PLACE AND DRAINING, CONCENTRATED IN COLOR. PPP. BED LOW AND LOCKED, CALL LIGHT IN REACH. VSS, WILL CPOC.
--- NOTE | 2016-10-25 21:00 | NUR ---
PT SITTING UP IN BED WATCHING TELEVISION. TITRATING DOPAMINE DOWN PER ORDERS TOLERATED. WATCHING BP CLOSELY. DENIES PAIN/NEEDS ATT. BED LOW AND LOCKED, CALL LIGHT IN REACH. VSS, WILL CPOC.
--- NOTE | 2016-10-25 23:00 | NUR ---
REASSESSMENT COMPLETE, PLEASE SEE FLOW SHEETS FOR DETAILS. DENIES PAIN/NEEDS ATT, BED LOW AND LOCKED, CALL LIGHT IN REACH. WILL CPOC.
[2016-10-26] VITALS (31 sets, daily range): BP systolic 115–179; BP diastolic 50–125
--- NOTE | 2016-10-26 00:57 | NUR ---
PT RESTLESS, TRYING TO GET OOB, INFORMED HER THAT SHE NEEDED TO TRY AND GET SOME REST, KEEPS STATING THAT HER DAUGHTERS ARE COMING INTO TOWN AND SHE NEEDS TO GET HOME, THEN THAT SHE NEEDS TO CALL HER AND MOTHER. INFORMED HER IT WAS TOO LATE TO DO ANY OF THAT. HELPED GET HER BED CLEANED UP AND HER REPOSITIONED IN BED FOR COMFORT. DENIES ANY PAIN OR OTHER NEEDS ATT. VSS, BED LOW AND LOCKED, CALL LIGHT IN REACH. WILL CPOC.
--- NOTE | 2016-10-26 01:49 | NUR ---
PT WAS PULLING AT LINES, TRYING TO GET OUT OF BED, YELLING OUT, AND THROWING THINGS ACCROSS ROOM. RESTRAINTS APPLIED AND SECURED AND ORDERS OBTAINED. PT CO SEVERE ITCHING, RECIEVED ORDERS FOR BENEDRYL 25MG. VSS ATT, BED LOW AND LOCKED, CALL LIGHT IN REACH. WILL CPOC.
--- NOTE | 2016-10-26 02:28 | NUR ---
PT HAS BECOME UNCONSOLABLE, UNCONTROLABLE, HAS BEEN SCREAMING AND THRASHING ABOUT. VP DR WAS PAGED AFTER FINDING THAT PATIENT WAS ON COLONOPIN 1MG BID AT HOME, WILL INFORM DOCTOR OF PATIENT STATUS.
--- NOTE | 2016-10-26 02:34 | NUR ---
SPOKE WITH BAO BUSBY RECASHLEYVED.
--- NOTE | 2016-10-26 03:00 | NUR ---
REASSESSMENT COMPLETE, PLEASE SEE FLOW SHEETS FOR DETAILS. PT CONTINUES TO BE UNCONSOLABLE. NOTIFIED STATUE CARVER ABOUT NEED FOR OVERRIDE FOR LISSY TO BE ABLE TO ADMINISTOR TO PATIENT. PT CONTINUES TO YELL OUT. RESTRAINTS CHECKED AND SECURED WITH QUICK RELEASE KNOTS. VSS ATT, DOPAMINE OFF ATT. BED LOW AND LOCKED, CALL LIGHT IN REACH. WILL CPOC.
[2016-10-26 03:36] LABS: BASOPHILS 0 % (0-2); EOSINOPHILS 0 % (0-7); HEMATOCRIT 32.7 % (36.0-48.0); HEMOGLOBIN 11.2 g/dL (12-16); IMMATURE GRANULOCYTES 0.4 % (0-5); LYMPHOCYTES 2.4 % (15-50); MCH 30.5 pg (26.0-34.0); MCHC 34.3 g/dL (31.0-37.0); MCV 89.1 fL (80.0-100.0); MEAN PLATELET VOLUME 11.1 fL (7.4-10.4); MONOCYTES 5.4 % (2-11); NEUTROPHILS 91.8 % (40-80); PLATELET COUNT 240 10x3/uL (130-400); RBC 3.67 10x6/uL (4.00-5.40); RDW 12.4 % (11.5-14.5); WBC 23.9 10x3/uL (4.8-10.8)
[2016-10-26 03:50] LABS: ALBUMIN 2.6 g/dL (3.4-5.0); ANION GAP 9.9 mmol/L (8-16); BILIRUBIN - TOTAL 0.58 mg/dL (0.2-1.3); CALCIUM 8.6 mg/dL (8.5-10.1); CARBON DIOXIDE 30.5 mmol/L (21.0-32.0); POTASSIUM - SERUM 3.4 mmol/L (3.5-5.1); PROTEIN - SERUM 6.1 g/dL (6.4-8.2); VANCOMYCIN - RANDOM 14.7 ug/mL (10.0-20.0)
[2016-10-26 03:54] LABS: CREATININE - SERUM 1.2 mg/dL (0.6-1.3)
[2016-10-26 04:38] LABS: CREATININE - URINE 38.3 mg/dL (30-125); POTASSIUM - URINE 14.9 MMOL/L (12.0-62.0); PROTEIN - URINE 62.5 mg/dL (0.0-11.9)
--- NOTE | 2016-10-26 05:00 | NUR ---
PT IS LESS AGGRIVATED ATT, LAYING SILENTLY FOR THE MOST PART, CALL OUT EVERY NOW AND THEN FOR HER MOTHER OR . CONTINUES TO COMPLAIN ABOUT HAVING TO "GO POTTY" AND INFORMED HER THAT SHE HAS TUBES IN PLACE THAT ALLOW HER TO GO AT ALL TIMES WITHOUT GETTING UP. SHE SAID SHE KNEW THIS BUT "I STILL HAVE TO GET UP! I NEED TO GO HOME! i NEED TO SEE MY BABIES!". VSS ATT, BED LOW AND LOCKED, CALL LIGHT IN REACH. WILL CPOC.
--- NOTE | 2016-10-26 05:26 | NUR ---
ATTEMPTED TO GIVE PATIENT KLONOPIN TAB PER ORDERS BECAUSE 6[employer] GRADE TEACHER WAS ABLE TO COME BY TO GET IT OUT, AND PATIENT STATED SHE WOULD NOT TAKE ANYTHING BECAUSE SHE DID NOT KNOW WHAT WAS GOING ON AND HER TOLD HER TO NEVER TAKE PILLS WHEN YOU DONT KNOW WHAT THEY ARE. INFORMED TO PATIENT WHAT IS WAS HOME MED THAT SHE NORMALLY TAKES AND SHE CONTINUED TO REFUSE TO TAKE IT.
--- NOTE | 2016-10-26 07:00 | NUR ---
REC'D CARE OF PT. CONFUSED AND AGITATED. REORIENTED TO PLACE. PULLING AGAINST RESTRAINTS TRYING TO CLIMB OOB. TALKED HER DOWN. LESS AGITATED.
--- NOTE | 2016-10-26 09:10 | NUR ---
AT BEDSIDE. UPDATED.
--- NOTE | 2016-10-26 11:00 | NUR ---
REASSESSMENT COMPLETED PER FLOW SHEET. SEE FLOW SHEET.
--- NOTE | 2016-10-26 11:54 | NUR ---
BLOOD DRAWN FROM CVL FOR CE
--- NOTE | 2016-10-26 11:57 | NUR ---
BICARB GTT DC'D
--- NOTE | 2016-10-26 12:00 | NUR ---
AT BEDSIDE. UPDATED.
[2016-10-26 12:51] LABS: CKMB 5.2 U/L (0.0-3.6); CREATINE KINASE 236 UL (21-215)
[2016-10-26 12:55] LABS: TROPONIN-I 0.159 ng/mL (0.000-0.060)
--- NOTE | 2016-10-26 15:00 | NUR ---
REASSESSMENT COMPLETED PER FLOW SHEET. SEE FLOW SHEET.
--- NOTE | 2016-10-26 15:11 | NUR ---
I PAGED DR. TURK AND HE RETURNED PAGE. UPDATED HIM ABOUT CONSULT AND ABOUT ELEVATED CE.
--- NOTE | 2016-10-26 17:13 | NUR ---
EXTREMELY AGITATED. TRYING TO CLIMB OOB. KICKING AT STAFF AND HITTING AT STAFF WHEN TRYING TO GET BACK IN BED. RESTRAINED. BUT STILL IS ABLE TO PULL OUT RECTAL TUBE AND COMBS FROM BLADDER.
--- NOTE | 2016-10-26 17:26 | NUR ---
LESS AGITATED. RESTING WITH EYES CLOSED.
--- NOTE | 2016-10-26 17:40 | NUR ---
AGITATED. HOLLERING OUT FOR "LEYDI".
[2016-10-26 18:26] LABS: CREATINE KINASE 191 UL (21-215)
[2016-10-26 18:27] LABS: TROPONIN-I 0.198 ng/mL (0.000-0.060)
--- NOTE | 2016-10-26 18:31 | NUR ---
SPOKE WITH DR. TURK ABOUT TROPONIN LEVEL OF 0.198. HE SAID TO CANCEL ALL CE LAB DRAWS.
--- NOTE | 2016-10-26 19:30 | NUR ---
PT BED SATURATED WITH BROWN/GREEN DIARRHEA. JASVIR-CARE DONE. STOOL MANAGEMENT RECTAL TUBE PLACED - PATENT. LASHAE VILLA.
--- NOTE | 2016-10-26 20:30 | NUR ---
REPORT RECIEVED ASSESSMENT COMPLETE PER FLOW SHEET. VSS. REFER FOR FINDINGS. WILL CONTINUE TO MONITOR.
--- NOTE | 2016-10-26 21:50 | NUR ---
NO FAMILY AT THIS TIME. VSS. WILL CONTINUE TO MONITOR.
--- NOTE | 2016-10-26 23:12 | NUR ---
REPORT RECIEVED. ASSESSMENT COMPLETE PER FLOW SHEET. NO NEW CHANGES. PT RESTING COMFORTABLY. VSS WILL CONTINUE TO MONITOR.
[2016-10-27] VITALS (24 sets, daily range): BP systolic 113–154; BP diastolic 53–204
--- NOTE | 2016-10-27 01:12 | NUR ---
PT AWAKE CONFUSED AND YELLING. REORIENTED. DENIES FURTHER NEEDS. WILL CONTINUE TO MONITOR.
--- NOTE | 2016-10-27 03:09 | NUR ---
REASSESSMENT COMPLETE PER FLOW SHEET. VSS. NO NEW CHANGES. WILL CONTINUE TO MONITOR.
[2016-10-27 04:39] LABS: BASOPHILS 0.1 % (0-2); EOSINOPHILS 0 % (0-7); HEMATOCRIT 29.3 % (36.0-48.0); HEMOGLOBIN 9.9 g/dL (12-16); IMMATURE GRANULOCYTES 0.7 % (0-5); LYMPHOCYTES 5.8 % (15-50); MCH 30.6 pg (26.0-34.0); MCHC 33.8 g/dL (31.0-37.0); MCV 90.4 fL (80.0-100.0); MEAN PLATELET VOLUME 10.4 fL (7.4-10.4); MONOCYTES 8.7 % (2-11); NEUTROPHILS 84.7 % (40-80); PLATELET COUNT 196 10x3/uL (130-400); RBC 3.24 10x6/uL (4.00-5.40); RDW 12.5 % (11.5-14.5)
[2016-10-27 04:40] LABS: WBC 14.9 10x3/uL (4.8-10.8)
--- NOTE | 2016-10-27 04:53 | NUR ---
PT AWAKE CONFUSED X4. REORIENTED. AGITATED AND YELLING KICKED NURSE IN HEAD. REMOVED COMBS. REPOSITIONED UP IN BED RESTRAINTS REAPPLIED. DILAUDID ADM.
[2016-10-27 04:56] LABS: ALBUMIN 2.2 g/dL (3.4-5.0); ANION GAP 10.1 mmol/L (8-16); BILIRUBIN - TOTAL 0.97 mg/dL (0.2-1.3); CALCIUM 8.3 mg/dL (8.5-10.1); CARBON DIOXIDE 27.7 mmol/L (21.0-32.0); POTASSIUM - SERUM 3.8 mmol/L (3.5-5.1); PROTEIN - SERUM 5.2 g/dL (6.4-8.2)
--- NOTE | 2016-10-27 06:24 | NUR ---
PT REQUEST TO BE CALLED AND UPDATED. NO ANSWER. WILL ATTEMPT AGAIN. NO NEW CHANGES. WILL CONTINUE TO MONITOR.
--- NOTE | 2016-10-27 09:00 | NUR ---
PT IN AFIB RATE 160. SARY GONZALES APN CALLED CARDIZEM 10 MG ORDERED IV AND CARDIZEM GTT WILL BE STARTED.
--- NOTE | 2016-10-27 09:45 | NUR ---
NUTRITION MONITORING & EVAL CHART REVIEWED, FAMILY AT BEDSIDE. CLEAR LIQUID DIET STARTED. WILL MONITOR DIET ADVANCEMENT, PO INTAKE. RD FOLLOWING
--- NOTE | 2016-10-27 19:00 | NUR ---
LAYING IN BED AWAKE, ALERT, AGITATED. CALMED DOWN AFTER TALKING TO HER AND REORIENTING TO TIME AND PLACE. PAIN 0/10 ON A NUMERIC SCALE. TEACHING PROVIDED ABOUT IMPORTANCE OF REPORTING PAIN. VSS. SCDs IN PLACE. R IJ CVL PATENT. BED IN LOWEST POSITION. CALL LIGHT WITHIN REACH. SEE FLOW SHEET FOR FULL ASSESSMENT.
--- NOTE | 2016-10-27 19:00 | NUR ---
LAYING IN BED SEDATED. SEE FLOW SHEET FOR VENT SETTINGS. SCLERA YELLOW PUPIL SIZE 4CM BRISK REACTION TO LIGHT. OGT IN PLACE GREEN STOMACH BILE TO LOW INTERMITTENT SUCTION. 7.5CM ETT IN PLACE AT 24CM LIPLINE. S1S2 PRESENT REGULAR RYTHM. TELEMETRY MONITORING REATE OF 89 SINUS RHYTH. LUNG SOUNDS CLEAR ALL LOBES. L ABDOMEN IS SOFT. SKIN IS WARM, PINK, AND DRY. RADIAL PULSES PALPABLE. R POPLITEAL PULSE PALPABLE. L POPLITEAL PALPABE VIA DOPPLER. COMBS CATHETER IN PLACE. R IJ CVL DRESSING ATTACHED TO SKIN, NO REDNESS OR SWELLING NOTED AROUND SITE. SEE FLOWSHEET FOR FLUIDS. SCDs ON, REMOVED TO ASSESS SKIN, NO REDNESS OR SWELLING NOTED. BED IN LOWEST POSITION. SEE FLOW SHEET FOR FULL ASSESSMENT. REMOVED AND ASSESSED SKIN, SKIN IS INTACT, NO REDNESS OR SWELLING NOTED. CAPILLARY REFILL <3 SECONDS IN UPPER AND LOWER QUADRANTS.
--- NOTE | 2016-10-27 20:15 | NUR ---
PT ON BED EDUARDO. VOIDED 350ML CLEAR, ROSAURA URINE. JASVIR-CARE DONE. PT VERY AGITATED AT THIS TIME, UNABLE TO REORIENTED. CRYING OUT THAT SHE "HURTS". PRN HALDOL AND DILAUDID GIVEN PER MD ORDER. WILL CONT CLOSE MONITORING.
--- NOTE | 2016-10-27 21:00 | NUR ---
LAYING IN BED. VSS. WILL CONTINUE TO MONITOR. CALL LIGHT WITHIN REACH. BED IN LOWEST POSITION.
--- NOTE | 2016-10-27 21:00 | NUR ---
LAYING IN BED SEDATED. VSS. WILL CONTINUE TO MONITOR.
--- NOTE | 2016-10-27 23:00 | NUR ---
REASSESSMENT COMPLETE. SEE FLOW SHEET FOR DETAILS. VSS. WILL CONTINUE TO MONITOR.
[2016-10-28] VITALS (25 sets, daily range): BP systolic 116–167; BP diastolic 50–86
--- NOTE | 2016-10-28 01:00 | NUR ---
LAYING IN BED ASLEEP. VSS. WILL CONTINUE TO MONITOR. BED IN LOWEST POSITION. CALL LIGHT WITHIN REACH.
[2016-10-28 03:08] LABS: OVA + PARASITE EXAM Final report (())
--- NOTE | 2016-10-28 03:14 | NUR ---
PT AWAKE, ON BED EDUARDO VOIDED 250ML CLEAR, YELLOW URINE. PT VERY CONFUSED AND AGITATED.. ADMIN PRN HALDOL AND DILAUDID FOR C/O PAIN. REPOSITIONED UP IN BED FOR COMFORT. ALARMS ON.
--- NOTE | 2016-10-28 03:29 | NUR ---
PT MORE CALM, RESTING QUIETLY. REASSESSMENT PER FLOWSHEET. VSS.
--- NOTE | 2016-10-28 05:00 | NUR ---
LAYING IN BED ASLEEP. VSS. WILL CONTINUE TO MONITOR.
[2016-10-28 05:26] LABS: BASOPHILS 0.1 % (0-2); EOSINOPHILS 0.1 % (0-7); HEMATOCRIT 28.4 % (36.0-48.0); HEMOGLOBIN 9.5 g/dL (12-16); LYMPHOCYTES 17.9 % (15-50); MCH 30.5 pg (26.0-34.0); MCHC 33.5 g/dL (31.0-37.0); MCV 91.3 fL (80.0-100.0); MEAN PLATELET VOLUME 10.3 fL (7.4-10.4); MONOCYTES 15.7 % (2-11); NEUTROPHILS 64.2 % (40-80); PLATELET COUNT 211 10x3/uL (130-400); RBC 3.11 10x6/uL (4.00-5.40); RDW 12.9 % (11.5-14.5)
[2016-10-28 05:32] LABS: WBC 9.6 10x3/uL (4.8-10.8)
[2016-10-28 06:07] LABS: ALBUMIN 2.1 g/dL (3.4-5.0); ANION GAP 11.5 mmol/L (8-16); BILIRUBIN - TOTAL 0.8 mg/dL (0.2-1.3); CALCIUM 7.9 mg/dL (8.5-10.1); CARBON DIOXIDE 25.1 mmol/L (21.0-32.0); POTASSIUM - SERUM 3.6 mmol/L (3.5-5.1); PROTEIN - SERUM 4.7 g/dL (6.4-8.2)
--- NOTE | 2016-10-28 06:36 | NUR ---
LAYING IN BED ASLEEP. NO VISITORS AT THIS TIME. WILL CONTINUE TO MONITOR.
--- NOTE | 2016-10-28 18:38 | NUR ---
0700-RECIEVED ASLEEP-RESPONDS EASILY TO VERBAL AND ASSISTED ON TO BEDPAN PER PT REQUEST-RESTRAINTS LEFT IN PLACE FOR PROTECTION OF IV CVL-PT AGREEABLE AND STATED I DON'T KNOW WHAT I DO' 1244-ASSISTED TO BEDSIDE COMMODE CHAIR-PT ABLE TO FOLLOW DIRECTION 1300-ASSISTED TOCHAIR 1345-RETURNED TO BED WITH ASSIST-OF PHYSICAL THERAPY-SEVERE VERBAL HALLUCINATIONS-NOTED 1400-HALDOL IM GIVEN FOR SEVERE HALLUCINATIONS- 1500-AUNT AT [facility]-NOTED INCREASED HALLUCINATIONS AND AGITATION-ENCOURAGED AUNT TO CUT VISIT SHORT 1540-SPOKE TO ON TELEPHONE -MADE AWARE OF SEVERE HALLUCINATIONS-MAYBE MEMORY RECALL FROM CHILD ACUNA- STATED HAD TRAUMATIC CHILDHOOD 1800- AT [facility]-PT APPEARS MORE SETTLED- AGREEABLE FOR NEED OF RESTRAINTS-STATED WATCH R HAND-QUESTIONS AND CONCERNS ADDRESSED 1814-DR BURDICK IN UNIT CURRENT STATUS REPORT GIVEN AND ORDERS RECIEVED
--- NOTE | 2016-10-28 19:30 | NUR ---
SHIFT ASSESSMENT PER FLOWSHEET. PT MONITORED PER STANDARD ICU PROTOCOL. ABLE TO STATE SHE IS IN [facility], 2017 IS THE YEAR AND HER NAME. PT IS CONFUSED TO WHY SHE IS HERE AND STATED SHE WAS READY TO GO OUTSIDE AND GET SOME FRESH AIR. VERY QUICKLY SHOWED SIGNS OF CONFUSION AND THEN SEEMED TO HAVE MORE CLARITY WHEN REORIENTATED. IVF AND IV LINES ARE CURRENT AND ARE DATED AND LABELED. PT CONTINUES TO REQUIRE ICU MONITORING WITH ALL ALARMS VERIFIED AND CHECKED.
--- NOTE | 2016-10-28 20:00 | NUR ---
CALL RECEIVED FROM MALE IDENTIFYING HIMSELF PT'S , LEYDI. GENERAL UPDATE GIVEN
--- NOTE | 2016-10-28 21:00 | NUR ---
HS MEDS GIVEN DOCCUMENTED ON JUL. PT HAD REQUESTED BEDPAN AND THEN REMOVED THE BEDPAN VOIDING IN BED. DURING CARE PT REACHED OUT AND GRABBED NURSE WITH VERY TIGHT INFORMATICIST SCRATCHING. PT DID RELEASE WHEN COMMANDED TO AND WAS REMORSEFUL STATING "I WON'T EVER DO THAT AGAIN" PT GIVEN BATH AND COMPLETE LINEN CHANGE DONE.
--- NOTE | 2016-10-28 23:00 | NUR ---
SHIFT REASSESSMENT COMPLETED. SEE FLOWSHEET. PT HAS BEEN MORE CALM SINCE HS MEDS NOT YELLING OUT OFTEN AND SLEEPING WELL. WILL CONTINUE TO MONITOR
[2016-10-29] VITALS (25 sets, daily range): BP systolic 92–155; BP diastolic 48–89
--- NOTE | 2016-10-29 01:00 | NUR ---
PT RESTING AT THIS TIME. WAS GIVEN MEDS PER JUL FOR PAIN PER PT COMPLAINT. EFFECTIVE. RESP REG AND NONLABORED
--- NOTE | 2016-10-29 03:00 | NUR ---
SHIFT REASSESSMENT COMPLETED SEE FLOWSHEET. PT REQUESTED BEDPAN, PROVIDED. PT HAD BEEN INCONTINENT OF URINE, PERICARE PROVIDED AND PARTIAL LINEN CHANGE PROVIDED
--- NOTE | 2016-10-29 04:00 | NUR ---
VENOUS SPECIMEN OBTAINED FROM DISTAL PORT AND SENT TO LAB FOR ANALYSIS. PORT FLUSHED WITH NORMAL SALINE PER PROTOCOL
[2016-10-29 04:44] LABS: BASOPHILS 0 % (0-2); EOSINOPHILS 0.1 % (0-7); HEMATOCRIT 28.4 % (36.0-48.0); HEMOGLOBIN 9.5 g/dL (12-16); IMMATURE GRANULOCYTES 2.5 % (0-5); LYMPHOCYTES 15.8 % (15-50); MCH 30.3 pg (26.0-34.0); MCHC 33.5 g/dL (31.0-37.0); MCV 90.4 fL (80.0-100.0); MEAN PLATELET VOLUME 10.3 fL (7.4-10.4); MONOCYTES 12.9 % (2-11); NEUTROPHILS 68.7 % (40-80); PLATELET COUNT 252 10x3/uL (130-400); RBC 3.14 10x6/uL (4.00-5.40); RDW 12.9 % (11.5-14.5)
[2016-10-29 04:45] LABS: WBC 13.5 10x3/uL (4.8-10.8)
[2016-10-29 05:05] LABS: ALBUMIN 2.1 g/dL (3.4-5.0); ALKALINE PHOSPHATASE 81 U/L (46-116); ALT (SGPT) 55 U/L (10-68); CALC OSMOLALITY 280 mosm/kg (275-300); CALCIUM 7.5 mg/dL (8.5-10.1); CARBON DIOXIDE 22.5 mmol/L (21.0-32.0); CHLORIDE - SERUM 110 mmol/L (98-107); CREATININE - SERUM 0.8 mg/dL (0.6-1.3); GLUCOSE 103 mg/dL (74-106); PROTEIN - SERUM 4.7 g/dL (6.4-8.2); SODIUM 140 mmol/L (136-145); UREA NITROGEN 17 mg/dL (7-18); eGFR NON AFRICAN AMERICAN 76 mL/min (90-120)
--- NOTE | 2016-10-29 06:00 | NUR ---
LABS REVIEWED. PT VERY COOPERATIVE AND ORIENTATED AT THIS TIME
--- NOTE | 2016-10-29 07:43 | NUR ---
PT AWAKEAND ALERT,BUE WRISTRESTRAINTS OFF AND PT FEEDS SELF.
--- NOTE | 2016-10-29 08:16 | NUR ---
ASSISTED TOBSC, PT ORIENTED X 3 AND APPROPRIATE.
--- NOTE | 2016-10-29 09:17 | NUR ---
NUTRITION MONITORING & EVAL CHART REVIEWED, PT VISIT. TOLERATING REG DIET, 100% INTAKE ENSURE. WILL CONTINUE TO PROVIDE DIET, MONITOR PO INTAKE. RD FOLLOWING
--- NOTE | 2016-10-29 12:52 | NUR ---
PTC/O ABD PAIN RUQ AFTER EATING [place]. DILAUDID GIVEN AND ASSISTED BACK TO BED.
--- NOTE | 2016-10-29 19:00 | NUR ---
Received patient resting in bed with eyes open, assessment completed per flowsheet. Patient AO x4, patient crying and c/o "aches all over". Eyes PERRLA @ 4mm with brisk response, sclera is white. S1/S2 noted NSR on telemetry with HR 69, rhythmic and regular. Breathing is even and unlabored on room air with O2 sat 97%, lung sounds clear all rinaldi. Abdomen is flat and soft, tender to palpation with c/o chronic pain 4/10 in lower abdomen. Patient assisted to bedside commode, 250 ml clear yellow urine noted. Slight weakness noted all extremities, information technology associate/pedal equal and bilateral. R IJ CVL noted, patent with dressing CDI. PRN diluadid given for pain, will reassess. No further needs at this time, all VSS and will continue to monitor.
--- NOTE | 2016-10-29 21:00 | NUR ---
Patient resting in bed with eyes closed, breathing is even and unlabored on room air with O2 sat 96%. No further needs at this time, all VSS and will continue to monitor.
--- NOTE | 2016-10-29 23:15 | NUR ---
Reassessment completed per flowsheet, patient resting in bed with eyes closed. S1/S2 noted NSR on telemetry with HR 83, rhythmic and regular. Breathing is even and unlabored on room air, O2 sat 96%. Abdomen is tender to palpation, flat and soft. Rectal tube secured with brown liquid stool noted. No further needs at this time, all VSS and will continue to monitor.
[2016-10-30] VITALS (24 sets, daily range): BP systolic 92–164; BP diastolic 40–69
--- NOTE | 2016-10-30 00:21 | NUR ---
Assisted patient to bedside commode, 450 ml clear yellow urine noted. No further needs and will continue to monitor.
--- NOTE | 2016-10-30 03:15 | NUR ---
Reassessment completed per flowsheet, patient resting in bed with eyes closed. S1/S2 noted NSR on telemetry with HR 64, rhythmic and regular. Breathing is even and unlabored on room air, O2 sat 96%. Abdomen is tender to palpation, soft and flat. No further needs at this time, all VSS and will continue to monitor
[2016-10-30 04:22] LABS: BASOPHILS 0.1 % (0-2); EOSINOPHILS 2.6 % (0-7); HEMATOCRIT 28.2 % (36.0-48.0); HEMOGLOBIN 9.2 g/dL (12-16); IMMATURE GRANULOCYTES 2.1 % (0-5); LYMPHOCYTES 20.3 % (15-50); MCH 30.2 pg (26.0-34.0); MCHC 32.6 g/dL (31.0-37.0); MEAN PLATELET VOLUME 9.7 fL (7.4-10.4); MONOCYTES 7.4 % (2-11); NEUTROPHILS 67.5 % (40-80); PLATELET COUNT 263 10x3/uL (130-400); RBC 3.05 10x6/uL (4.00-5.40); RDW 13.4 % (11.5-14.5); WBC 14.9 10x3/uL (4.8-10.8)
[2016-10-30 04:26] LABS: MCV 92.5 fL (80.0-100.0)
[2016-10-30 04:37] LABS: ALBUMIN 1.9 g/dL (3.4-5.0); ALKALINE PHOSPHATASE 71 U/L (46-116); CALCIUM 7.2 mg/dL (8.5-10.1); CARBON DIOXIDE 25.5 mmol/L (21.0-32.0); CHLORIDE - SERUM 111 mmol/L (98-107); CREATININE - SERUM 0.8 mg/dL (0.6-1.3); GLUCOSE 81 mg/dL (74-106); POTASSIUM - SERUM 3.9 mmol/L (3.5-5.1); PROTEIN - SERUM 4.3 g/dL (6.4-8.2); SODIUM 140 mmol/L (136-145); eGFR NON AFRICAN AMERICAN 76 mL/min (90-120)
[2016-10-30 04:44] LABS: ALT (SGPT) 41 U/L (10-68); CALC OSMOLALITY 277 mosm/kg (275-300); UREA NITROGEN 12 mg/dL (7-18)
--- NOTE | 2016-10-30 05:00 | NUR ---
Patient resting in bed with eyes closed, breathing is even and unlabored on room air with O2 sat 98%. Patient c/o abdominal pain after getting up to bedside commode, heat pack provided for comfort and will provide PRN medication when available. No further needs at this time, all VSS and will continue to monitor.
--- NOTE | 2016-10-30 06:19 | NUR ---
Rectal tube removed without difficulty, 40ml water removed from balloon. Patient tolerated well, no further needs at this time.
--- NOTE | 2016-10-30 09:55 | NUR ---
Nutrition follow-up: Diet: Regular as tolerated; Ensure TID PO intake ~65% average of meals Rectal tube discontinued Labs reviewed Wt: 151# PO intake if fair to good at this time; drinking Ensure RDN following.
--- NOTE | 2016-10-30 10:14 | NUR ---
REHAB PRESCREENING Rehab referral received and chart reviewed. Ms. Pierce is currently not ambulating with PT. The last PT note shows bed mobility and bed to chair. Rehab would like to see patient ambulating in order effectively evaluate for admission criteria. We will continue to follow this patient and will consult with PT for progress. Thank you for this referral! Arlene Arguello, MINE MANAGER Rehab Director Of Laboratory Operations
--- NOTE | 2016-10-30 15:06 | NUR ---
10/30/2016 15:06 DCP: Discharge Planning Rehab Screen in progress. Spoke with [facility] in rehab - patient is good candidate. They will accept patient when medically stable. CM met with patient & spouse - explained rehab services/benefits. They will discuss options with each other & make a decision in the morning (home with HH vs Rehab vs OP PT). CM will follow.
--- NOTE | 2016-10-30 19:15 | NUR ---
Received patient resting in bed with eyes closed, assessment completed per flowsheet. Patient AO x4, cooperative but crying due to abdominal pain. Eyes PERRLA @ 4mm with brisk response, sclera is white. S1/S2 noted NSR on telemetry with HR 74, rhythmic and regular. Breathing is even and unlabored on room air with O2 sat 97%, lung sounds clear throughout. Abdomen is flat and soft, tender to palpation with bowel sounds active x4. Patient ambulates to bedside with slight assistance, c/o abdominal pain after utilizing commode. 200ml clear yellow urine noted. Full ROM all extremities with no weakness noted, all pulses palpable with cap refill <3 sec. R subclavian CVL noted with dressing intact, patent with fluids infusing. Patient c/o abdominal pain 6/10, repositioned and will provide PRN pain medication when available. No further needs at this time, all VSS and will continue to monitor.
--- NOTE | 2016-10-30 21:10 | NUR ---
No visitors at this time, patient sitting up in baed c/o abdominal pain. Patient becomes tearful and anxious, talked to patient and appears calmer. Will provide PRN pain medication when available, no further needs at this time. All VSS and will continue to monitor.
--- NOTE | 2016-10-30 23:00 | NUR ---
Reassessment completed per flowsheet, patient resting in bed with eyes closed. S1/S2 noted NSR on telemetry with HR 84, rhythmic and regular. Brathing is even and unlabored on room air, O2 sat 95%. Abdomen is soft and flat, tender to palpation with bowel sounds active x4. No further needs at this time, all VSS and will continue to monitor.
[2016-10-31] VITALS (20 sets, daily range): BP systolic 92–127; BP diastolic 39–76
--- NOTE | 2016-10-31 03:10 | NUR ---
Reassessment completed per flowsheet, patient resting in bed with eyes closed. S1/S2 noted NSR on telemetry with HR 66, rhythmic and regular. Breathing is even and unlabored on room air, O2 sat 96%. Abdomen is soft and flat, tander to palpation with bowel sounds active x4. Patient c/o pain when moving and using the bedside commode, brown/green urine/stool mix in collection with slight incontinence when ambulating to bedside. Patient denies pain or other needs at this time, all VSS and will continue to monitor.
[2016-10-31 05:19] LABS: HEMOGLOBIN 9.5 g/dL (12-16); MCH 30.2 pg (26.0-34.0); MCHC 32.8 g/dL (31.0-37.0); MCV 92.1 fL (80.0-100.0); RBC 3.15 10x6/uL (4.00-5.40); RDW 13.4 % (11.5-14.5); WBC 22.5 10x3/uL (4.8-10.8)
[2016-10-31 05:20] LABS: MEAN PLATELET VOLUME 9.3 fL (7.4-10.4); PLATELET COUNT 316 10x3/uL (130-400)
[2016-10-31 05:42] LABS: ALBUMIN 2.1 g/dL (3.4-5.0); ALKALINE PHOSPHATASE 81 U/L (46-116); ALT (SGPT) 37 U/L (10-68); BILIRUBIN - TOTAL 0.57 mg/dL (0.2-1.3); CALC OSMOLALITY 273 mosm/kg (275-300); CALCIUM 7.8 mg/dL (8.5-10.1); CARBON DIOXIDE 22.6 mmol/L (21.0-32.0); CHLORIDE - SERUM 109 mmol/L (98-107); CREATININE - SERUM 0.8 mg/dL (0.6-1.3); GLUCOSE 84 mg/dL (74-106); PROTEIN - SERUM 4.8 g/dL (6.4-8.2); SODIUM 138 mmol/L (136-145); UREA NITROGEN 9 mg/dL (7-18); VANCOMYCIN - TROUGH 12.4 ug/mL (10.0-20.0); eGFR NON AFRICAN AMERICAN 76 mL/min (90-120)
[2016-10-31 05:52] LABS: EOSINOPHILS 1 % (0-7); LYMPHOCYTES 13 % (15-50); MONOCYTES 3 % (2-11); NEUTROPHILS 79 % (40-80); PLATELET ESTIMATE NORMAL
--- NOTE | 2016-10-31 07:33 | NUR ---
INCONTINENT BOWEL MOVEMENT NOTED AT THIS TIME. LOOSE, DARK GREEN. PT ABLE TO NOTIFY STAFF WHEN HAS INCONTINENT EPISODE. NO ACUTE DISTRESS NOTED. WILL CONTINUE PLAN OF CARE.
--- NOTE | 2016-10-31 09:34 | NUR ---
WORKING WITH PHYSICAL THERAPY AT THIS TIME. NO ACUTE DISTRESS NOTED. WILL CONTINUE PLAN OF CARE.
--- NOTE | 2016-10-31 10:43 | NUR ---
LYING IN BED AT THIS TIME. NO ACUTE DISTRESS NOTED. WILL CONTINUE PLAN OF CARE.
--- NOTE | 2016-10-31 12:39 | NUR ---
RESTING IN BED AT THIS TIME. RESPIRATIONS AT STEADY AND UNLABORED RATE. NO ACUTE DISTRESS NOTED. WILL CONTINUE PLAN OF CARE.
--- NOTE | 2016-10-31 12:53 | EC ---
PATIENT:YOVANY PRESTON DATE OF SERVICE: 10/23/16 SEX: F MEDICAL RECORD: [id number] DATE OF : [birth year] LOCATION:[facility] D230 AGE OF PATIENT: 66 ADMISSION DATE: 10/23/16 REFERRING PHYSICIAN: INTERPRETING PHYSICIAN: YUN RIGGINS MD ECHOCARDIOGRAM REPORT ECHO CHARGES 4 ECHO COMPLETE CLINICAL DIAGNOSIS: A-FIB ECHOCARDIOGRAPHIC MEASUREMENTS (adult normal given) AC root (d.<3.7cm) 3.0 LV Septum d (<1.2 cm> 1.2 Valve Excursion 2.3 LV Septum (systole) 1.7 Left Atria (s.<4.0cm> 3.4 LVPW d(<1.2cm) 1.2 RV (d.<2.3cm) 2.3 LVPW (sytole) 1.7 LV diastole(<5.6CM) 5.5 MV E-F(>70mm/sec) LV systole 3.4 LVOT Diameter 1.7 MV exc.(>10mm) Est.ejection fraction (50-75%) Pericardial Effusion N DOPPLER: LVIT A 148 E 113 LA RVSP 42.0 LVOT 156 AOP1/2T 317.0 Asc. Ao 246 RVOT 93.0 RA PA 104 AV Gradient Peak 24.2 AV Mean 9.1 AV Area 1.2 MV Gradient Peak 9.2 MV Mean 3.6 MV Area COMMENTS: Backside Grinder: Bibi RIOSOE Gear Changer:Carina Flower TAPE# PACS DATE OF SERVICE: 10/27/2016 Adequate 2D echo, color flow and spectral Doppler, and M-mode. Borderline LVH. LV internal dimensions is normal. Wall motion is normal. EF is greater than 55%. Aortic valve sclerosis without stenosis by Doppler interrogation. Mild to moderate AI by color flow imaging. Left atrium is normal at 3.4 cm. Mitral valve is thickened with moderate MR. Right-sided chamber is grossly normal. Trace TR. TRANSINT:[id number] Voice Confirmation ID: [id number] DOCUMENT ID: [id number] ECHOCARDIOGRAM REPORT [id number] YOVANY PRESTON YUN RIGGINS MD at 9003 CC: [id number] DICTATION DATE: 10/27/16 1340 WINERY CELLAR HAND: 06/13/17 0041 ADM IN [facility] [address] [place] [id number]
--- NOTE | 2016-10-31 12:53 | CN ---
PATIENT NAME:YOVANY PRESTON MEDICAL RECORD: [id number] : [birth year] LOCATION:[id number] ADMIT DATE: 10/23/16 ACCOUNT: [id number] CONSULTING PHYSICIAN: YUN RIGGINS MD REFERRING PHYSICIAN: CEASAR CARPIO DO DATE OF CONSULTATION: 10/27/2016 HISTORY OF PRESENT ILLNESS: 66-year-old female with known history of coronary artery disease, typically followed by Dr. Villanueva. Historically, no history of atrial fibrillation, admitted with confusion and acute renal insufficiency. History is provided by her . She pesented with hypotension. She has been having marked abdominal pain and found to have a markedly elevated white blood cell count as well. We are asked to see her concerning her cardiovascular status. PAST MEDICAL HISTORY: Include: 1. History of coronary artery disease. 2. Dyslipidemia. 3. Gastroesophageal reflux disease. MEDICATIONS: Plavix 75 daily, Lipitor 40 mg p.o. daily, Zetia 10 mg p.o. daily, lisinopril 10 daily, Cymbalta 20 daily, Neurontin, Mobic 7.5 b.i.d., Ultram 50 b.i.d. ALLERGIES: PENICILLIN AND CEPHALOSPORINS. SOCIAL HISTORY: Unobtainable. REVIEW OF SYSTEMS: Unobtainable due to the patient factors. PHYSICAL EXAMINATION: GENERAL: Chronically ill-appearing female in no acute distress. VITAL SIGNS: She is confused, blood pressure 136/83, pulse is 132 and irregular. HEENT: Normocephalic and atraumatic. NECK: No bruits noted. HEART: Irregular, tachycardic. LUNGS: Poor air excursion. ABDOMEN: Soft and nontender. EXTREMITIES: Pulses are decreased. No edema. IMPRESSION: 1. Atrial fibrillation. Previous in sinus, suspect will convert if she improves from current illness. 2. Further recommendations based on above. TRANSINT:[id number] Voice Confirmation ID: [id number] DOCUMENT ID: [id number] CONSULT REPORT [id number] KARYYOVANY KEEN YUN RIGGINS MD at 1253 CC: [id number] DICTATION DATE: 10/27/16 0938 LEGAL SERVICES MANAGER: 10/27/16 1906 ADM IN [place] [id number] [place] [address]
--- NOTE | 2016-10-31 14:40 | NUR ---
INCONTINENT BOWEL MOVEMENT NOTED AT THIS TIME, LIQUID DARK GREEN. JASVIR CARE PROVIDED VIA TOTAL ASSIST. PT ABLE TO ASSIST WITH TURNING. NO ACUTE DISTRESS NOTED. WILL CONTINUE PLAN OF CARE.
--- NOTE | 2016-10-31 14:46 | NUR ---
This patient has been accepted to the acute in-patient rehab and will be accepted as soon as the physician feels she is medically stable for discharge to rehab. The CM Alecia Mcgregor has been made aware. Opal Tian RN Clinical Liaison, Rehab
--- NOTE | 2016-10-31 16:41 | NUR ---
ASSISTED TO BEDSIDE TOILET VIA STAND BY ASSIST. CONTINENT LIQUID DARK GREEN COLORED BOWEL MOVEMENT NOTED. PT ASSISTED BACK TO BED. DENIES ANY NEEDS. WILL CONTINUE PLAN OF CARE.
--- NOTE | 2016-10-31 17:42 | NUR ---
UP IN BED EATING SUPPER AT THIS TIME. DENEIS ANY NEEDS. NO ACUTE DISTRESS NOTED. WILL CONTINUE PLAN OF CARE.
--- NOTE | 2016-10-31 18:21 | NUR ---
Late Entry Patient was accepted by Rehab. Required DR Ward's approval to transfer to rehab. He stated that he feels the patient should go to a medical floor prior to being discharged to acute rehab. Primary nurse called to speak with Opal, rehab screener, as she had spoken directly to DR Simon. Opal was not available at the time the primary nurse left a message with Monique.
--- NOTE | 2016-10-31 22:04 | NUR ---
1909-REPORT RECIEVED, INITIAL ASSESSMENT COMPLETE, PLEASE SEE FLOW SHEETS FOR DETAILS. A&O X4, DENIES PAIN ATT, ASKED TO BE HELPED TO BEDSIDE CAMODE, THIS WAS PROVIDED. PARTIAL LINEN CHANGE PROVIDED. VERY MINIMAL ASSISTANCE NEEDED TO MOVE. 2104-UP TO CAMODE POST ENEMA, OUTPUT OF ENEMA, BM, AND URINE OF APPROX. 150ML. PT C/O SLIGHT PAIN IN ABD. LAYED DOWN TO RELIEVE, WILL MONITOR. 2199-C/O SEVERE ABD PAIN, GAVE DILAUDID PRN PER ORDERS. WILL CPOC.
--- NOTE | 2016-10-31 23:10 | NUR ---
PT RESTING. DENIES PAIN/NEEDS ATT. BED LOW AND LOCKED, CALL LIGHT IN REACH. VSS, WILL CPOC.
--- NOTE | 2016-11-01 00:07 | NUR ---
2310 REASSESSMENT COMPLETE, PLEASE SEE FLOW SHEETS FOR DETAILS. PT DENIES ANY PAIN/NEEDS ATT, BED LOW AND LOCKED, CALL LIGHT IN REACH. VSS, WILL CPOC.
--- NOTE | 2016-11-01 01:35 | NUR ---
0105 PT CRYING ABOUT CHILDHOOD MEMORIES, MISTAKING STAFF FOR OTHER PEOPLE SHE HAS MET IN HER LIFE. STATES "I DONT KNOW WHERE I AM ANYMORE. WHATS GOING ON ANYMORE?". REASSURED HER THAT SHE IS IN A SAFE PLACE, INFORMED HER OF WHERE SHE WAS AND THE YEAR. DID NOT SEEM TO CALM DOWN MUCH. SHE SAID THAT I "DONT UNDERSTAND WHAT A SPECIAL RELATIONSHIP WE HAD WAS" A "[place]" THAT SHE KNEW. i TOLD HER IM SURE IT WAS A GREAT ONE THE WAY THAT SHE WAS EXPERSSING HERSELF ABOUT IT AND SAID IT CALMLY TO NOT UPSET HER, AND SUGGESTED SHE LAY DOWN AND TRY TO GET SOME REST. SHE AGREED TO THIS AND STATED IT WAS TOO NOISY, I PULLED DOOR CLOSED LEAVING LANDONTIAN SLIGHTLY BACK TO BE ABLE TO KEEP AN EYE ON HER. WILL CPOC.
[2016-11-01 03:00] VITALS: BP 167/69
--- NOTE | 2016-11-01 03:04 | NUR ---
PT REQUESTED BEDSIDE CAMODE, ASSISTANCE WAS PROVIDED IN THIS. ASSISTED PT BACK TO BED. DENIES PAIN/NEEDS ATT. BED LOW AND LOCKED, CALL LIGHT IN REACH. VSS, WILL CPOC.
[2016-11-01 03:57] LABS: BASOPHILS 0 % (0-2); EOSINOPHILS 0.2 % (0-7); HEMATOCRIT 27.4 % (36.0-48.0); IMMATURE GRANULOCYTES 1.1 % (0-5); LYMPHOCYTES 6.9 % (15-50); MCH 30.2 pg (26.0-34.0); MCHC 32.8 g/dL (31.0-37.0); MCV 91.9 fL (80.0-100.0); NEUTROPHILS 88.8 % (40-80); PLATELET COUNT 325 10x3/uL (130-400); RBC 2.98 10x6/uL (4.00-5.40); RDW 13.4 % (11.5-14.5); WBC 20.2 10x3/uL (4.8-10.8)
[2016-11-01 04:25] LABS: ALKALINE PHOSPHATASE 75 U/L (46-116); ALT (SGPT) 33 U/L (10-68); BILIRUBIN - TOTAL 0.41 mg/dL (0.2-1.3); CALC OSMOLALITY 277 mosm/kg (275-300); CARBON DIOXIDE 23.5 mmol/L (21.0-32.0); CHLORIDE - SERUM 110 mmol/L (98-107); CREATININE - SERUM 0.7 mg/dL (0.6-1.3); GLUCOSE 112 mg/dL (74-106); POTASSIUM - SERUM 4.2 mmol/L (3.5-5.1); PROTEIN - SERUM 4.7 g/dL (6.4-8.2); SODIUM 140 mmol/L (136-145); UREA NITROGEN 7 mg/dL (7-18); eGFR NON AFRICAN AMERICAN 88 mL/min (90-120)
--- NOTE | 2016-11-01 05:10 | NUR ---
TO CAMODE AND BACK WITH LITTLE ASSISTANCE NEEDED. DENIES PAIN/NEEDS ATT. BED LOW AND LOCKED, CALL LIGHT IN REACH. WILL CPOC.
[2016-11-01 07:00] VITALS: BP 122/48
--- NOTE | 2016-11-01 08:17 | NUR ---
UP IN BED AWAKE AT THIS TIME. DENIES ANY NEEDS. NO ACUTE DISTRESS NOTED. WILL CONTINUE PLAN OF CARE.
--- NOTE | 2016-11-01 10:36 | NUR ---
AWAKE IN BED AT THIS TIME. DENIES ANY NEEDS. NOTED PT HAS EPISODES OF CONFUSION. REORIENTATION PROVIDED. WILL CONTINUE PLAN OF CARE.
[2016-11-01 11:00] VITALS: BP 134/53
--- NOTE | 2016-11-01 13:35 | NUR ---
NO ACUTE DISTRESS NOTED. ASSISTED TO BEDSIDE TOILET, CONTINENT VOID AND BOWEL MOVEMENT NOTED. PT TRANSFERRED VIA STAND BY ASSIST. WILL CONTINUE PLAN OF CARE.
[2016-11-01 15:00] VITALS: BP 108/48
--- NOTE | 2016-11-01 15:59 | NUR ---
PRN HALDOL ADMIN FOR AGGITATION. NOTED PT WAS YELLING AT STAFF WELL , ATTEMPTED TO CALM PT DOWN WITH CONVERSATION, PT UNABLE TO CALM. PRN HALDOL ADMIN PER ORDERS. PT IS NOW APPEARING MORE CALM AND COOPERATIVE. NO ACUTE DISTRESS NOTED. WILL CONTINUE PLAN OF CARE.
--- NOTE | 2016-11-01 16:39 | NUR ---
UP IN BED EATING SUPPER AT THIS TIME. NO AGGITATION NOTED AT THIS TIME. WILL CONTINUE PLAN OF CARE.
--- NOTE | 2016-11-01 17:19 | NUR ---
REPORT GIVEN AT THIS TIME TO ALYSE. WILL TRANSFER PT SHORTLY.
--- NOTE | 2016-11-01 17:45 | NUR ---
PT TRANSFERRED AT THIS TIME VIA WHEELCHAIR. NOTIFIED OF PTS TRANSFER. TRANSFERRED WITH ALL PERSONAL ITEMS WITH ACCOMPANIMENT FROM NURSE. NO ACUTE DISTRESS NOTED. NO FURTHER ACTIONS.
--- NOTE | 2016-11-01 17:45 | NUR ---
PT ARRIVED TO FLOOR VIA WHEELCHAIR BY ICU STAFF. PT IS A&O. RIGHT IJ CVL WITH NS WITH 20K AT 75CC/HR. SKIN IS CLEAN DRY AND INTACT. PT STATES SHE HAS AN URGENCY ON STOOL WHEN SHE HAS TO GO. DEMINISHED LLL. BLE DEPENDENT EDEMA. PT STATED IT IS BECAUSE OF THE NON SKID SOCKS. SOCKS ARE LOOSE. PT IS A MINIMAL 1 PERSON ASSIST. SURVEY TECHNICIAN STATES THAT PT HAS EMOTIONAL OUTBURSTS AND CAN BECOME COMBATIVE. PT STATED THAT BM ARE VERY LOOSE. PT IS RESTING IN BED WITH SIDE RAILS UP X2, BED AT LOWEST POSITION AND CALL LOVE IN USE/REACH. WILL CONTINUE TO MONITOR.
--- NOTE | 2016-11-01 19:13 | NUR ---
CALLED NURSING STATION STATING THAT PT THREW PHONE ACROSS THE ROOM. WENT TO GO CHECK ON PT. PT WAS GETTING OUT OF THE BED AND HAD A BM ON THE FLOOR. PT C/O OF A SORE BUTT, APPLIED BUTT PASTE. BED ALARM IS SET.
--- NOTE | 2016-11-01 19:13 | NUR ---
ASSISTED X 2 BACK FROM THE BATHROOM WHERE PATIENT HAD DIRREHEA. COMPLAINTS OF "MY BOTTOM HURTS". BOTTOM IS PINK, BUTT PASTE APPLIED FOR COMFORT FROM DIARRHEA. BED ALARM IS SET, DOOR LEFT OPEN. PATIENT LAYING ON RIGHT SIDE.
--- NOTE | 2016-11-01 20:00 | NUR ---
PT IN BED WITH HOB UP FOR COMFORT. CHRONIC DIARRHEA. URGENCY. RIGHT IJ CVL. NO 02. BED ALARM ON. BED IN LOWEST POSTIION AND CALL LIGHT WITHIN REACH.
--- NOTE | 2016-11-02 03:41 | NUR ---
PT LYING IN BED RESTING QUIETLY. BED IN LOWEST POSITION AND CALL LIGHT WITHIN REACH.
[2016-11-02 04:00] VITALS: BP 96/41
[2016-11-02 06:08] LABS: BASOPHILS 0.1 % (0-2); EOSINOPHILS 2.1 % (0-7); HEMATOCRIT 28.4 % (36.0-48.0); HEMOGLOBIN 9.2 g/dL (12-16); IMMATURE GRANULOCYTES 0.9 % (0-5); LYMPHOCYTES 13.7 % (15-50); MCH 29.8 pg (26.0-34.0); MCHC 32.4 g/dL (31.0-37.0); MCV 91.9 fL (80.0-100.0); MEAN PLATELET VOLUME 9.1 fL (7.4-10.4); MONOCYTES 5.7 % (2-11); NEUTROPHILS 77.5 % (40-80); PLATELET COUNT 357 10x3/uL (130-400); RBC 3.09 10x6/uL (4.00-5.40); RDW 13.7 % (11.5-14.5); WBC 18.4 10x3/uL (4.8-10.8)
[2016-11-02 06:27] LABS: CALC OSMOLALITY 283 mosm/kg (275-300); CHLORIDE - SERUM 113 mmol/L (98-107); CREATININE - SERUM 0.8 mg/dL (0.6-1.3); GLUCOSE 91 mg/dL (74-106); MAGNESIUM - SERUM 1.6 mg/dL (1.8-2.4); POTASSIUM - SERUM 3.9 mmol/L (3.5-5.1); SODIUM 144 mmol/L (136-145); UREA NITROGEN 5 mg/dL (7-18); eGFR NON AFRICAN AMERICAN 76 mL/min (90-120)
--- NOTE | 2016-11-02 07:55 | NUR ---
AM ROUNDS - PT IS AWAKE AND NEEDING TO USE THE BATHROOM. PT HAS VERY WATERY STOOLS. BUTT IS PINK AND IRRITATED. APPLIED BUTT PASTE AND A CLEAN DEPENDS. PT IS ON ROOM AIR. RIGHT IJ CVL WITH NS WITH 20K AT 75CC/HR. BED ALARM SET AND WORKING. NON SKID SOCKS ON. NO FUTHER NEEDS AT THIS TIME. WILL CONTINUE TO MONITOR
[2016-11-02 11:52] VITALS: BP 111/48
[2016-11-02 16:00] VITALS: BP 110/45
--- NOTE | 2016-11-02 16:17 | NUR ---
Rehab Note- Visited with the patient in her room. She is very interested in [facility] IRF stay when ready for discharge from the acute hospital. Will plan to admit when ready for discharge from the acute hospital. Will continue to follow at this time. Pamela Berger RN Clinical Liaison, [facility] Rehab
--- NOTE | 2016-11-02 19:47 | NUR ---
DR. CHARLES PAGED FOR NAUSEA, SEE NEW ORDERS.
[2016-11-02 21:30] VITALS: BP 110/43
[2016-11-03 01:07] VITALS: BP 137/53
[2016-11-03 05:26] VITALS: BP 109/43
[2016-11-03 05:42] LABS: BASOPHILS 0.1 % (0-2); EOSINOPHILS 1.3 % (0-7); HEMATOCRIT 26.7 % (36.0-48.0); HEMOGLOBIN 8.7 g/dL (12-16); IMMATURE GRANULOCYTES 0.5 % (0-5); LYMPHOCYTES 15.3 % (15-50); MCH 30.2 pg (26.0-34.0); MCHC 32.6 g/dL (31.0-37.0); MCV 92.7 fL (80.0-100.0); MEAN PLATELET VOLUME 8.9 fL (7.4-10.4); MONOCYTES 6.8 % (2-11); PLATELET COUNT 362 10x3/uL (130-400); RBC 2.88 10x6/uL (4.00-5.40)
[2016-11-03 06:03] LABS: ANION GAP 7.7 mmol/L (8-16); CALCIUM 7.6 mg/dL (8.5-10.1); CARBON DIOXIDE 23.9 mmol/L (21.0-32.0); CREATININE - SERUM 0.9 mg/dL (0.6-1.3); POTASSIUM - SERUM 3.6 mmol/L (3.5-5.1)
[2016-11-03 08:00] VITALS: BP 101/56
[2016-11-03 12:00] VITALS: BP 96/36
[2016-11-03 16:00] VITALS: BP 97/36
--- NOTE | 2016-11-03 16:22 | NUR ---
Patient Name: YOVANY PRESTON Encounter No: [id number] : 1950 Primary Insurance: MEDICARE A & B Anticipated DC Date: 11-04-2016 Planned Disposition: Inpatient Rehab External Planned Provider: [facility] DCP follow-up note: CM SPOKE TO PT IN ROOM REGARDING DISCHARGE PLANNING AND NEEDS. PT REPORTS SHE WOULD LIKE TO GO TO [facility]. PT REPORTS BEING TIRED OF LAYING IN BED AND IS READY TO GO SOON POSSIBLE. PT ASKED CM TO CALL HER SPOUSE. CM CALLED LEYDI PRESTON AT [phone] AND DISCUSSED DISCHARGE PLANNING. LEYDI REPORTS HE IS MORE THAN READY FOR PT TO GO TO REHAB AND HE WOULD LIKE MORE COMMUNICATION WITH PHYSICIANS; LYEDI REPORTS HE UNDERSTANDS THEY ARE WAITING ON DR. LAMAS TO ROUND AND MAKE A DECISION; LEYDI WOULD LIKE TO BE CALLED AND WILL TRY TO BE AT THE HOSPITAL TODAY TO SPEAK WITH DR. LAMAS HIMSELF. IMPORTANT MESSAGE FROM MEDICARE PROVIDED AND EXPLAINED TO PT WITH SPOUSE ON THE SPEAKER PHONE. SPOUSE, LEYDI PRESTON AT [phone] WOULD LIKE TO BE CALLED BY THE DOCTOR WHEN HE ROUNDS AND HAS LEFT HIS HOME AND CELL NUMBERS ON THE BOARD IN PT'S ROOM FOR THAT PURPOSE. PT PLANS TO DISCHARGE TO INPATIENT REHAB SOON POSSIBLE. SUZAN SPOKE TO YOSEPH OF [facility] WHO REPORTS THEY PLAN TO ACCEPT PT AT DISCHARGE. NOTIFY [facility] WHEN PT IS READY FOR DISCHARGE TO INPATIENT REHAB. Michelet Grijalva, CASE MANAGEMENT
--- NOTE | 2016-11-03 18:39 | NUR ---
ALERT AND ORIENTED X4. DELILAH WANTS DOCTOR TO CALL HIM @ [phone] OR [phone]. QUESTIONS ABOUT TESTS RAN. UP WITH ASSIST. KNOWS TO CALL WHEN GOING TO RESTROOM. NO CHANGE. CONTINUE PLAN OF CARE AND SAFETY PRECAUTIONS.
[2016-11-03 19:00] VITALS: BP 123/56
--- NOTE | 2016-11-03 19:19 | PRO ---
PATIENT:YOVANY PRESTON MEDICAL RECORD: [id number] : [birth year] LOCATION:D.M2 D.2138 ADMISSION DATE: 10/23/16 PROCEDURE PERFORMED BY: MMEE SIMON MD DATE OF PROCEDURE: 10/31/2016 DATE OF PROCEDURE: 10/31/2016 FLAVORINGS COMPOUNDER: Meme Simon MD. PROCEDURE: Flexible sigmoidoscopy with biopsy Sedation with 2 mg Versed IV push. INSTRUMENT: Olympus video adjustable colonoscope. FINDINGS: Rectal exam was normal. The colonoscope passed through the rectum into the mid descending colon without much difficulty, evidence of mild looping in the colon. Prep was good to fair. Exam was basically remarkable for a very inflamed mid and distal rectum with almost ischemic change appearing and questionable overlying pseudomembranous colitis in this focal area. This area was biopsied. Once the past scope, the proximal to that area, the rest of the left colon was simply had mild to moderate nonspecific inflammation with erythema and granularity. There were no other ulcerations and I did not see any other pseudomembranes present. I took some biopsies from the sigmoid colon and from the descending colon. Once I passed the scope to the splenic flexure area, the mucosa appeared very normal. The patient tolerated the procedure well without complication. IMPRESSION: 1. Severely inflamed rectum with what looked like a possible ischemic change and possible pseudomembranous colitis, status post biopsy. 2. Mild to moderate nonspecific colitis involving the left colon from roughly the mid descending colon down to the mid rectum, status post biopsy on 2 separate areas. 3. Normal appearing splenic flexure. PLAN: 1. Follow up biopsy results times 3. 2. Follow up stool for CDT. 3. Empiric Flagyl and vancomycin for now. 4. I am going to stop her Levaquin since her white count seen to be rising despite that medication and it could be aggravating her precipitating pseudomembranous colitis. 5. I am going to go and start some oral vancomycin as well some steroid enemas. 6. Follow up biopsy results. 7. Follow up white cell count closely. TRANSINT:[id number] Voice Confirmation ID: [id number] DOCUMENT ID: [id number] PROCEDURE NOTE [id number] YOVANY PRESTON MEME SIMON MD at 1919 CC: CEASAR CARPIO DO and NINFA CROSS MD [id number] DICTATION DATE: 10/31/16 1244 AUDIO VISUAL PRODUCTION SPECIALIST: 11/01/16 0542 ADM IN [facility] [address] [place] [id number]
--- NOTE | 2016-11-03 19:45 | NUR ---
PT ASSESSMENT COMPLETE AWAKE AND ALERT ORIETED TO NAME ONLY LUNGS CLEAR BILAT, BSA ACTIVE X 4 QUADS PT HAS CONFUSION. NOTED SPOKE WITH SPOUSE LEYDI ON TELEPHONE REQUESTING PT TO HAVE JESSICA BEYER. WILL ATTEMPT TO OBTAIN ORDER FOR ENSURE.
[2016-11-04] VITALS: BP 102/39
--- NOTE | 2016-11-04 01:41 | NUR ---
PT COMPLAINT OF PAIN GIVEN DILAUDID PER REQUEST AND PER ORDER.
[2016-11-04 04:00] VITALS: BP 104/39
--- NOTE | 2016-11-04 04:25 | NUR ---
PT RESTING WITH EYES CLOSED NO DISTRESS NOTED HAS HAD A VERY RESTLESS NIGHT WITH MUCH CONFUSION NOTED CALLED THE NURSES DESK AT 3 AM AND REQUESTED THAT WE CALL HER BECAUSE SHE IS MAD AT [employer] AND WANTS TO CUT HIS BALLS OFF AND GET A DIVORCE. UNABLE TO REDIRECT AT THAT TIME.
[2016-11-04 08:17] VITALS: BP 110/44
--- NOTE | 2016-11-04 10:13 | NUR ---
Patient Name: YOVANY PRESTON Encounter No: [id number] : 1950 Primary Insurance: MEDICARE A & B Anticipated DC Date: 11-04-2016 Planned Disposition: Inpatient Rehab External Planned Provider: [facility] DCP follow-up note: CM RECEIVED CALL FROM LEYDI KARY AT [phone] WHO INFORMED CM THAT HE AND PT WANT PT TO BE DISCHARGED TO INPATIENT REHAB TODAY OR HOME. MR PRESTON REPORTS BEING DISSATIFIED WITH LACK OF PHYSICIAN COMMUNICATION WITH HIM. CM CALLED DR. BURDICK OFFICE, SPOKE TO NURSE ADDIS AND NOTIFIED OF PT/FAMILY REQUEST. CM RECEIVED CALL FROM ADDIS WHO INFORMED CM THAT DR. BURIDCK IS OK WITH PT DISCHARGING TO INPATIENT REHAB TODAY. CM CALLED [facility], SPOKE TO LUKAS WHO REPORTS THEY CAN ACCEPT PT TODAY IF STABLE FOR DISCHARGE TO REHAB. CM CALLED DR. CARPIO'S OFFICE, NOTIFIED VIKASH OF ABOVE INFORMATION. CM WAITING DISCHARGE ORDER. IF DISCHARGED TO INPATIENT REHAB, PLEASE NOTIFY [facility]. PT'S SPOUSE WOULD LIKE TO BE NOTIFIED VIA PHONE SOON DISCHARGE DISPOSITION IS KNOWN. Michelet Grijalva, CASE MANAGEMENT
[2016-11-04] MEDS ORDERED: VANCOMYCIN250 MG/51 PO (12:23)
[2016-11-04] MEDS ORDERED: CARDIZEM60 MG PO (12:23)
[2016-11-04] MEDS ORDERED: FLAGYL500 MG PO (12:23)
[2016-11-04] MEDS ORDERED: KLONOPIN1 MG PO (12:24)
[2016-11-04] MEDS ORDERED: CELEXA20 MG PO (12:24)
[2016-11-04] MEDS ORDERED: CORTENEMA100 MG/60 RC (12:25)
[2016-11-04] MEDS ORDERED: ENTOCORT EC3 MG PO (12:25)
[2016-11-04] MEDS ORDERED: CALMOSEPTINE OI71 GM TOPICAL (12:25)
[2016-11-04] MEDS ORDERED: LOPERAMIDE HCL2 MG PO (12:26)
--- NOTE | 2016-11-04 15:46 | NUR ---
ALERT AND ORIENTED X4. RESTING IN BED. ORDER FOR DISCHARGE TO INPATIENT REHAB. REPORT CALLED TO DOM CASTRO IN REHAB. RT [facility] REQUESTED TO CONTINUE IN REHAB. CALLED 'S OFFICE FOR ORDER TO TRANSFER WITH [facility]. SPOKE WITH KIRSTEN. WAITING TO HEAR BACK FROM OFFICE BEFORE DISCHARGE. CONTINUE PLAN OF CARE AND SAFETY PRECAUTIONS.
--- NOTE | 2016-11-04 15:56 | NUR ---
DISCHARGE TO REHAB WITH [facility] PER VIA TELEPHONE.
--- NOTE | 2016-11-04 16:50 | NUR ---
ALERT AND ORIENTED X4. ESCORT TO REHAB ROOM 1117A VIA WHEELCHAIR. NOTIFY SPOUSE OF TRANSFER AND ROOM NUMBER. REMAINS FREE FROM INJURY.
== END 2016-11-04 18:31 | DRG 871 ==
LOC: D.ER 22:43 → D.M2 10-23 00:38 → D.ICU 10-23 00:38 → D.M2 11-01 17:43
PROVIDERS: Emergency Medicine; Family Medicine; Internal Medicine; Surgery; ADMIT Family Medicine
PROC: 0T9B70Z Drainage of Bladder with Drainage Device, Via Natural or Artificial Opening (ICD-10-PCS; principal; 2016-10-23)
PROC: 02HV33Z Insertion of Infusion Device into Superior Vena Cava, Percutaneous Approach (ICD-10-PCS; 2016-10-23)
PROC: 0DBL8ZX Excision of Transverse Colon, Via Natural or Artificial Opening Endoscopic, Diagnostic (ICD-10-PCS; 2016-10-31)
DX: A41.9 Sepsis, unspecified organism (principal); N17.0 Acute kidney failure with tubular necrosis; K55.059 Acute (reversible) ischemia of intestine, part and extent unspecified; F05 Delirium due to known physiological condition; A04.7 Enterocolitis due to Clostridium difficile; D64.9 Anemia, unspecified; I12.9 Hypertensive chronic kidney disease with stage 1 through stage 4 chronic kidney disease, or unspecified chronic kidney disease; N18.3 Chronic kidney disease, stage 3 (moderate); F41.9 Anxiety disorder, unspecified; F32.9 Major depressive disorder, single episode, unspecified; M79.7 Fibromyalgia; E87.6 Hypokalemia; T68.XXXA Hypothermia, initial encounter; I48.91 Unspecified atrial fibrillation; E78.5 Hyperlipidemia, unspecified; I25.10 Atherosclerotic heart disease of native coronary artery without angina pectoris; K21.9 Gastro-esophageal reflux disease without esophagitis; Z72.0 Tobacco use

== ENCOUNTER 2016-11-04 15:54 | Inpatient (IN) | payer MEDICARE, OTHER ==
[2016-10-23 09:50] VITALS: BMI 24.7
[~2016-11-04 15:54] MED LIST changes: +CALMOSEPTINE OI71 GM TOPICAL; +CARDIZEM60 MG PO; +CELEXA20 MG PO; +CORTENEMA100 MG/60 RC; +ENTOCORT EC3 MG PO; +FLAGYL500 MG PO; +LOPERAMIDE HCL2 MG PO; +VANCOMYCIN250 MG/51 PO
--- NOTE | 2016-11-04 19:45 | NUR ---
PT. STANDING IN DOORWAY OF HER ROOM AND WANTING TO KNOW WHEN SHE CAN GO HOME. INFORMED PT. THAT STAFF AWAITING RETURN CALL FROM MD. PT'S SPOUSE IN ROOM AND COMMENTED HE UNDERSTOOD THE PROCESS OF WAITING TO HEAR BACK FROM MD, JUST THAT HIS IS VERY IMPATIENT. INFORMED PT. AND SPOUSE THAT I WOULD INFORM THEM OF ANY UPDATES THEY OCCURED.
--- NOTE | 2016-11-04 20:30 | NUR ---
SPOUSE INQUIRING ABOUT STATUS OF DISCHARGE. INFORMED SPOUSE STILL AWAITING TO HEAR BACK FROM MD. SPOUSE NOT HAPPY WITH SITUATION. INFORMED SPOUSE AND PT. I WOULD INFORM THEM OF ANY UPDATES.
--- NOTE | 2016-11-04 22:00 | NUR ---
INFORMED BY CHARGE NURSE, SANTI GALINDO RN, THAT PT. TO GO AMA, IF THAT IS WHAT SHE WANTS, EXPLAIN FORM TO PT/SPOUSE, GET SIGNATURE, PULL CENTRAL LINE, THEN PT. MAY BE DISCHARGED.
--- NOTE | 2016-11-04 22:05 | NUR ---
EXPLAINED AMA FORM TO PT. AND SHE STILL WANTS TO LEAVE NOW. FORM ALL EXPLAINED TO PT., AND SIGNED BY PT. PULLED RIGHT CLAVICAL TLSC WITH TIP INTACT, PRESSURE HELD X 10 MIN. NO BLEEDING OCCURED AND PRESSURE DRESSING APPLIED. PT. TOLERATED PROCEDURE WITHOUT ANY INCIDENTS/COMPLAINTS. SPOUSE SAID HE WOULD DRESS PT. INSTRUCTED PT/SPOUSE TO CALL PCP IN AM TO FIND OUT ABOUT PT'S HOME MEDICATIONS, AND IF THERE WERE ANY PROBLEMS TONIGHT TO CALL MD OR 911. SPOUSE VERBALIZED UNDERSTANDING OF INSTRUCTIONS. INSTRUCTED SPOUSE HOW TO LEAVE HOSPITAL SINCE THE FRONT DOORS TO THE HOSPITAL HAVE ALREADY BEEN LOCKED AND SPOUSE STATED HE WAS FAMILIAR WITH WHERE TO GO.
--- NOTE | 2016-11-04 22:30 | NUR ---
SPOUSE AGAIN ASKING IF I'VE HEARD ANYTHING ABOUT HIS 'S DISCHARGE. INFORMED HIM THAT I HAD NOT AND MD WAS CALLED AGAIN AT THIS TIME IN FRONT OF HIM WHILE HE WAS AT THE NURSES' STATION.
== END 2016-11-04 22:25 | disposition left against medical advice (07) | DRG 872 ==
LOC: D.REHAB 15:54
PROVIDERS: ADMIT Emergency Medicine
DX: A41.9 Sepsis, unspecified organism (principal); N17.9 Acute kidney failure, unspecified